=== PATIENT | female | born 1970 | race Caucasian/White ===

== ENCOUNTER 2018-09-13 20:19 | Emergency (ER) | payer OTHER, SELFPAY ==
[2018-09-13 20:19] VITALS: BP 136/81; PULSE 87; RESP 16; TEMP 36.7; O2SAT 99; BMI 39.4
--- NOTE | 2018-09-13 20:39 | ED.VISSUMM ---
- ER Visit Summary Date of Service: 09/13/18 Chief Complaint: Right eye injury History of Present Illness: The patient is a 47 F with a paper cut to her right eye 2 hours ago. No vision changes. She has no redness she feels well. She has minimal pain. Physical Examination: Otherwise normal exam, there is a very small linear abrasion over the lateral corneal region does not involve the pupil. Emergency Department Course and Treatment: We will use bacitracin. Patient will be discharged Discharge stable condition Impression: [Corneal abrasion] This note was generated with [employer] dictation software. It may contain incorrect words, spelling, and punctuation that were not noted in review of the chart prior to signing ED Disposition - Plan for ED Patient: Disposition: Home or Assisted Living Instructions: ED Eye Injury Corneal Abrasion Referrals: [facility] Doctor,Out of [Primary Care Provider] - As Needed
[2018-09-13] MEDS: Diphth,Pertuss(Acell),Tet Vac 0.5 ML Vial IM (20:48)
[2018-09-13 21:11] VITALS: BP 122/71; PULSE 71; RESP 17; O2SAT 99
== END 2018-09-13 21:12 | disposition home or self-care (01) ==
PROVIDERS: Emergency Provider Emergency Medicine; Family Provider Nurse Practitioner Family; PCP Nurse Practitioner Family
DX: S05.01XA Injury of conjunctiva and corneal abrasion without foreign body, right eye, initial encounter (principal); X58.XXXA Exposure to other specified factors, initial encounter; Y93.9 Activity, unspecified; Y92.9 Unspecified place or not applicable
CPT/HCPCS: 90471; 90715; 99282

== ENCOUNTER → 2019-04-08 12:36 | Outpatient (CLI) | payer OTHER, SELFPAY ==
--- NOTE | 2019-04-08 13:00 | MRI_ITS ---
STUDY: MRI BRAIN WITH AND WITHOUT CONTRAST REASON FOR EXAM: Female, 48 years old. Increase in H/A''s, pressure behind eyes, passing out TECHNIQUE: Standardized multiplanar fat and water weighted pulse sequences were obtained. Pt received 19ml Dotarem via IV was administered for the contrast portion of the examination. COMPARISON: None. FINDINGS: Normal size of the ventricles and extra-axial spaces for the patient''s age. Normal white matter tracts of the supratentorial brain. There is no evidence for recent intracranial ischemia or other cause of cytotoxic edema on diffusion weighted imaging (DWI). 1 cm hypointensity of the left hemisphere of the cerebellum is hypointense on all sequences with questionable blooming on the gradient echo images possibly consistent with some hemosiderin staining from old hemorrhage or calcification. Correlation with CT would be useful. Normal bilateral basal ganglia. Normal thalami. There is no extra-axial fluid accumulation. Normal flow voids within the major intracranial circulation suggesting patency by spin echo criteria. Normal venous enhancement. There is no enhancing intra-axial or extra-axial abnormality. Normal sella turcica, pituitary gland, infundibular stalk, optic chiasm and hypothalamus. Normal tectal plate and pineal gland. Normal midbrain, verena and medulla. Normal cerebellum. Normal basal cisterns. Normal bilateral temporal bones. Normal bilateral internal auditory canals. No demonstrated orbital abnormality, within the constraints of a routine brain study. Normal visualized paranasal sinuses. Normal calvarium and skull base. Normal visualized soft tissue structures. Normal visualized upper cervical spine. MRI/Brain W/WO Contrast IMPRESSION: Suspect 1 cm old hemorrhage or calcification of the left hemisphere of the cerebellum. Correlation with CT would be useful. Electronically Signed: Titus Baeza MD at 13:53 EST Tel , Service support ,
== END ==
PROVIDERS: Family Provider Nurse Practitioner Family; PCP Nurse Practitioner Family; Referring Provider Psychiatry & Neurology Neurology; Visit Provider Psychiatry & Neurology Neurology
DX: R55 Syncope and collapse (principal); R27.0 Ataxia, unspecified
CPT/HCPCS: 70553; A9575

== ENCOUNTER → 2019-05-14 14:35 | Outpatient (CLI) | payer OTHER, SELFPAY ==
--- NOTE | 2019-05-14 14:44 | RAD_ITS ---
STUDY: X-RAY - LUMBOSACRAL SPINE REASON FOR EXAM: Female, 48 years old. LUMBAR RADICULOPATHY -- PT STATES LEGS/KNEES GIVE OUT AND SHE FALLS TECHNIQUE: 7 view(s) of the lumbosacral spine were obtained. COMPARISON: None FINDINGS: Normal lumbar lordosis. There is no substantial scoliosis. There is normal alignment of the vertebrae. There is mild spondylosis with narrowing of disc spaces through the lower thoracic spine. Normal vertebral bodies and endplates. Normal disc space heights. Mild facet hypertrophy at L4-L5 and L5-S1. Normal bilateral sacral ala, sacroiliac joints, and visualized sacrum. Normal visualized soft tissue structures. RAD/L/S Spine w Bend Min 6 Vw IMPRESSION: Mild spondylosis/degenerative disease, more so through the lower thoracic spine. Otherwise normal x-ray examination of the lumbosacral spine. Electronically Signed: Oliva Alexander MD at 0:10 EST , Service support ,
== END ==
PROVIDERS: PCP Nurse Practitioner Family; Visit Provider Psychiatry & Neurology Neurology
DX: M54.16 Radiculopathy, lumbar region (principal)
CPT/HCPCS: 72114

== ENCOUNTER → 2019-06-01 13:03 | Outpatient (CLI) | payer OTHER, SELFPAY ==
--- NOTE | 2019-06-01 13:13 | CT_ITS ---
STUDY: CT BRAIN WITHOUT CONTRAST REASON FOR EXAM: Female, 48 years old. Severe headache, near syncope RADIATION DOSAGE (If Supplied By Facility): CTDIvol = ( 44.99 ) mGy, DLP = ( 745.49 ) mGycm TECHNIQUE: Transaxial CT imaging of the brain was performed without administration of intravenous contrast material. Individualized dose optimization techniques were used for this CT. COMPARISON: MRI from 04/08/2019 FINDINGS: Normal soft tissue structures. Normal calvarium. Normal size ventricles and extra-axial spaces for the patient''s age. Normal white matter tracts of the cerebral hemispheres. Normal basal ganglia and thalami. Normal brainstem. Normal cerebellum. There is no intracranial hemorrhage. There are no findings of an acute ischemic infarction. Normal visualized paranasal sinuses. CT/Brain/Head without Contrast IMPRESSION: Normal unenhanced CT scan of the brain. Electronically Signed: Lew Shepherd MD at 17:51 EST , Service support ,
== END ==
PROVIDERS: PCP Nurse Practitioner Family; Referring Provider Psychiatry & Neurology Neurology; Visit Provider Psychiatry & Neurology Neurology
DX: I61.4 Nontraumatic intracerebral hemorrhage in cerebellum (principal)
CPT/HCPCS: 70450

== ENCOUNTER 2020-08-28 21:24 | Emergency (ER) | payer OTHER, SELFPAY ==
[2020-08-28 21:25] VITALS: BP 105/83; PULSE 83; RESP 18; TEMP 36.4; O2SAT 100; BMI 30.1
[2020-08-28 21:27] VITALS: BP 105/83; PULSE 83; RESP 18; TEMP 36.4; O2SAT 100
--- NOTE | 2020-08-28 22:13 | EX.ED.DYSGE1 ---
HPI History of Present Illness Chief Complaint: Abscess Informant: patient Narrative Narrative: 49-year-old female presenting to the emergency department with rash to the posterior right leg. She states it started on 6 days ago. She states that she noticed that it was kind of firm and tender. She went and saw her primary care doctor who she states did not look at it but felt it was probably a Sorenson's cyst so she sent her to [facility]. She saw them today who she states was going to call in an antibiotic. She states that she never got an antibiotic called then. She reports that they eddie a ring around the redness of the site. It then opened up and started oozing clear to serosanguineous fluid. She notes there was some pus. She notes the redness is spread. She denies any fevers. [facility] Medical History Diabetes Fibromyalgia History of hypertension IBS (irritable bowel syndrome) Home Medications aspirin 81 mg PO DAILY 08/28/20 [History Last Taken Unknown] cephalexin 500 mg PO Q6 #40 capsule 08/28/20 [Rx Last Taken Unknown] cetirizine [Zyrtec] 10 mg PO DAILY 08/28/20 [History Last Taken Unknown] gabapentin 600 mg PO BID 08/28/20 [History Last Taken Unknown] gabapentin 600 mg PO BID 08/28/20 [History Last Taken Unknown] magnesium 400 mg PO DAILY 08/28/20 [History Last Taken Unknown] metformin 500 mg PO BID 08/28/20 [History Last Taken Unknown] omega 4-wxj-hod-fish oil [Fish Oil] 1,200 cap PO DAILY 08/28/20 [History Last Taken Unknown] sulfamethoxazole-trimethoprim 1 tab PO BID #20 tablet 08/28/20 [Rx Last Taken Unknown] thyroid (pork) [ASSOCIATE SOFTWARE DEVELOPMENT ENGINEER Thyroid] 60 mg PO DAILY 08/28/20 [History Last Taken Unknown] topiramate 100 mg PO BID 08/28/20 [History Last Taken Unknown] Allergy/AdvReac Type Severity Reaction Status Date / Time No Known Allergies Allergy Verified 08/28/20 21:24 Surgical History H/O: hysterectomy Hx of cholecystectomy Hx of tonsillectomy Social History (Updated 08/28/20 @ 22:[address] Jun Garzon, DO) Smoking Status: Current every day smoker substance use type: does not use ROS ROS ED Constitutional Constitutional ED: Denies chills or weight loss Eyes Eyes: Denies change in vision or diplopia ENT ENT ED: Denies ear pain, rhinorrhea or sore throat Cardiovascular Cardiovascular: Denies chest pain, orthopnea, palpitations or racing heartbeat Respiratory/Chest Respiratory/Chest: Denies cough, dyspnea or orthopnea Gastrointestinal Gastrointestinal: Denies abdominal pain, diarrhea, nausea or vomiting Genitourinary Genitourinary ED: Denies dysuria, hematuria or urinary frequency Musculoskeletal Musculoskeletal: Denies arthralgias or myalgias Integumentary Reports abscess and rash Neurologic Neurologic: Denies headache(s) or weakness Psychiatric Psychiatric: Denies anxiety, depression, suicidal ideation or suicidal thoughts Endocrine Endocrinology: Denies polydipsia, polyphagia or polyuria Allergic/Immunologic Allergic/Immunologic ED: Denies mouth swelling, tongue swelling or urticaria EXAM Physical Exam Const Vital Signs: 08/28/20 21:25 08/28/20 21:27 Temperature 97.6 F L 97.6 F L Temperature Source Temporal Temporal Pulse Rate 83 83 Respiratory Rate 18 18 Blood Pressure 105/83 H 105/83 H Blood Pressure Mean 90 90 Pulse Ox 100 100 Oxygen Delivery Method Room Air Room Air Positive well nourished and well developed General Appearance ED: well developed HEENT Reports normocephalic, head/scalp atraumatic and moist mucous membranes Eyes PERRL and EOMs intact bilaterally Neck no lymphadenopathy, supple and no JVD Resp normal respiratory effort and clear to auscultation bilaterally Cardio regular rate, regular rhythm and no murmurs GI normal to inspection, nondistended, normoactive bowel sounds and non-tender Palpation: soft Back/Spine no CVA tenderness and normal ROM Extremity normal to inspection General Extremety ED: Negative for edema General Extremity: Negative for edema Neuro oriented x3 and CN's II-XII intact bilaterally Sensorium / Orientation: alert Motor Exam: strength 5/5 throughout Psych mental status grossly normal Mood & Affect: Negative for depressed or tearful Skin no wounds Skin Narrative: Posterior right thigh demonstrates a 2 cm area of black eschar with a hole in the center. Serosanguineous fluid is drainage from it. There is about 15 cm of circular erythema around it. MDM MDM MDM Narrative Medical decision making narrative: Bedside ultrasound does not reveal an obvious fluid collection. As mentioned in the physical there is a hole in the center of the eschar and this is where fluid is draining from. Patient will be placed on Bactrim and Keflex. Wound culture sent. Patient was advised to return instructions. She was advised that she needs to follow-up with primary care doctor if this is improving to ensure resolution Discharge Plan Triage Chief Complaint: Abscess ED Provider: Jun Garzon Dx/Rx/DC Orders Clinical Impression: Cellulitis of left thigh Instructions: ED Cellulitis Prescriptions: New sulfamethoxazole-trimethoprim [sulfamethoxazole-trimethoprim] 1 TABLET tablet 1 tab PO BID Qty: 20 RF: 0 cephalexin [cephalexin] 500 MG capsule 500 mg PO Q6 Qty: 40 RF: 0 No Action magnesium 500 mg Tablet 400 mg PO DAILY RF: 0 gabapentin 600 mg Tablet 600 mg PO BID RF: 0 gabapentin 600 mg Tablet 600 mg PO BID RF: 0 aspirin 81 mg Tablet 81 mg PO DAILY RF: 0 topiramate 100 mg Tablet 100 mg PO BID RF: 0 metformin 500 mg Tablet,Er Basil.Retention 24 Hr 500 mg PO BID RF: 0 thyroid (pork) [ASSOCIATE SOFTWARE DEVELOPMENT ENGINEER Thyroid] 60 mg Tablet 60 mg PO DAILY RF: 0 omega 5-vpr-zqz-fish oil [Fish Oil] 1,200 (144-216) mg Capsule 1,200 cap PO DAILY RF: 0 Zyrtec 10 mg Capsule 10 mg PO DAILY RF: 0 Primary Care Provider: Emily Dickerson Referrals: Emily Dickerson, ASSOCIATE SOFTWARE DEVELOPMENT ENGINEER-C [Primary Care Provider] - 1 Week Disposition Disposition: Home, self care
[2020-08-28] MEDS: Smz/Tmp Ds Tablet 1 TABLET PO (22:34)
[2020-08-28] MEDS: Cephalexin 250 MG Capsule 500 MG PO (22:34)
== END 2020-08-28 22:36 | disposition home or self-care (01) ==
PROVIDERS: Emergency Provider Emergency Medicine; PCP Nurse Practitioner Family
DX: L03.115 Cellulitis of right lower limb (principal); I10 Essential (primary) hypertension; E11.9 Type 2 diabetes mellitus without complications; M79.7 Fibromyalgia; F17.200 Nicotine dependence, unspecified, uncomplicated; Z79.82 Long term (current) use of aspirin; Z79.84 Long term (current) use of oral hypoglycemic drugs; Z79.899 Other long term (current) drug therapy
CPT/HCPCS: 87070; 87077; 87186; 87205; 99283

== ENCOUNTER 2020-11-01 20:49 | Emergency (ER) | payer OTHER, SELFPAY ==
[2020-11-01 20:49] VITALS: BP 142/79; PULSE 90; RESP 16; TEMP 36.6; O2SAT 98; BMI 28.8
--- NOTE | 2020-11-01 21:45 | RAD_ITS ---
STUDY: X-RAY - RIGHT KNEE REASON FOR EXAM: Female, 49 years old. Injury TECHNIQUE: 4 view(s) of the knee. COMPARISON: None. FINDINGS: Normal visualized distal femur. Normal visualized proximal tibia and fibula. Normal proximal tibiofibular articulation. Normal medial femorotibial compartment. Normal lateral femorotibial compartment. Normal patellofemoral articulation. Possible medial subcutaneous soft tissue edema. RAD/Knee 4 or More Views IMPRESSION: No acute bony injury of the knee. Electronically Signed: Raymon Oshea DO at 22:45 EDT Tel [phone], Service support ,
--- NOTE | 2020-11-01 22:21 | EDS_ITS ---
HPI History of Present Illness Chief Complaint: Lower Extremity Injury Informant: patient Onset/Context/Timing Onset: Today Current Severity: Mild Maximum Severity: Moderate Narrative Narrative: Patient present secondary to right knee pain. Patient states that she injured her right knee about 20 years ago after a fall. She never required surgery. Today she was kneeling down on her knees after standing up and had severe pain in her right knee. She tried to walk it off but this caused more pain. No paresthesias. PFSH PFS Medical History Diabetes Fibromyalgia History of hypertension IBS (irritable bowel syndrome) Home Medications aspirin 81 mg PO DAILY 08/28/20 [History Last Taken Unknown] cephalexin 500 mg PO Q6 #40 capsule 08/28/20 [Rx Last Taken Unknown] cetirizine [Zyrtec] 10 mg PO DAILY 08/28/20 [History Last Taken Unknown] gabapentin 600 mg PO BID 08/28/20 [History Last Taken Unknown] gabapentin 600 mg PO BID 08/28/20 [History Last Taken Unknown] magnesium 400 mg PO DAILY 08/28/20 [History Last Taken Unknown] metformin 500 mg PO BID 08/28/20 [History Last Taken Unknown] omega 6-msx-zva-fish oil [Fish Oil] 1,200 cap PO DAILY 08/28/20 [History Last Taken Unknown] sulfamethoxazole-trimethoprim 1 tab PO BID #20 tablet 08/28/20 [Rx Last Taken Unknown] thyroid (pork) [CLINICAL RESOURCE MANAGER Thyroid] 60 mg PO DAILY 08/28/20 [History Last Taken Unknown] topiramate 100 mg PO BID 08/28/20 [History Last Taken Unknown] naproxen [Naprosyn] 500 mg PO BID PRN #20 tab 11/01/20 [Rx Last Taken Unknown] Allergy/AdvReac Type Severity Reaction Status Date / Time No Known Allergies Allergy Verified 11/01/20 20:49 Surgical History H/O: hysterectomy Hx of cholecystectomy Hx of tonsillectomy Social History Smoking Status: Current every day smoker tobacco type: cigarettes substance use type: does not use ROS ROS ED Constitutional Constitutional ED: Denies chills or fever(s) Eyes Eyes: Denies change in vision ENT ENT ED: Denies sore throat Cardiovascular Cardiovascular: Denies chest pain Respiratory/Chest Respiratory/Chest: Denies cough or dyspnea Gastrointestinal Gastrointestinal: Denies abdominal pain, diarrhea, nausea or vomiting Genitourinary Genitourinary ED: Denies dysuria Musculoskeletal Musculoskeletal: Reports arthralgias; Denies back pain Integumentary Denies rash Neurologic Neurologic: Denies headache(s) or weakness Psychiatric Psychiatric: Denies anxiety or depression Endocrine Endocrinology: Denies polydipsia or polyuria Allergic/Immunologic Allergic/Immunologic ED: Denies urticaria EXAM Physical Exam Const Vital Signs: 11/01/20 20:49 Temperature 97.8 F Temperature Source Temporal Pulse Rate 90 Respiratory Rate 16 Blood Pressure 142/79 H Blood Pressure Mean 100 Pulse Ox 98 Oxygen Delivery Method Room Air Positive well nourished and well developed General Appearance ED: well developed HEENT Reports normocephalic and head/scalp atraumatic Eyes PERRL and EOMs intact bilaterally Neck supple Chest Wall inspection of chest normal and palpation of chest normal Resp normal respiratory effort and clear to auscultation bilaterally Cardio regular rate and regular rhythm GI normal to inspection, nondistended, normoactive bowel sounds Palpation: soft Extremity normal to inspection Extremity Narrative: Tenderness outpatient along the infrapatellar tendon insertion site onto the tibia. No tenderness along the medial or lateral joint line. Patella is stable and ligaments are tight on testing. No significant edema. Neuro oriented x3 and no sensory deficits noted Sensorium / Orientation: alert Motor Exam: strength 5/5 throughout Psych mental status grossly normal Skin no rashes or lesions noted MDM MDM MDM Narrative Medical decision making narrative: Right knee x-rays are obtained. Patient declined anything for pain while here. Radiography Diagnostic Testing: Radiology Impression Knee X-Ray 11/01/20 21:45 IMPRESSION: No acute bony injury of the knee. Electronically Signed: Raymon Oshea DO at 22:45 EDT Tel [phone], Service support , Treatment and Re-Evaluation Comments:: Right knee x-ray per my interpretation reveals no acute bony findings. Test results discussed with the patient. Mk wrap is applied and patient will be given a prescription for naproxen. Patient's family has seen Dr. Sarmiento and Ramsey in the past and will be referred to him for follow-up as needed. Discharge Plan Triage Chief Complaint: Lower Extremity Injury ED Provider: Brielle Griffith Dx/Rx/DC Orders Clinical Impression: Right knee sprain Instructions: ED Knee Sprain Prescriptions: New naproxen [Naprosyn] 500 mg tablet 500 mg PO BID PRN (Reason: pain) Qty: 20 RF: 0 No Action magnesium 500 mg Tablet 400 mg PO DAILY RF: 0 gabapentin 600 mg Tablet 600 mg PO BID RF: 0 gabapentin 600 mg Tablet 600 mg PO BID RF: 0 aspirin 81 mg Tablet 81 mg PO DAILY RF: 0 topiramate 100 mg Tablet 100 mg PO BID RF: 0 metformin 500 mg Tablet,Er Basil.Retention 24 Hr 500 mg PO BID RF: 0 thyroid (pork) [CLINICAL RESOURCE MANAGER Thyroid] 60 mg Tablet 60 mg PO DAILY RF: 0 omega 6-soo-vcl-fish oil [Fish Oil] 1,200 (144-216) mg Capsule 1,200 cap PO DAILY RF: 0 Zyrtec 10 mg Capsule 10 mg PO DAILY RF: 0 sulfamethoxazole-trimethoprim [sulfamethoxazole-trimethoprim] 1 TABLET tablet 1 tab PO BID Qty: 20 RF: 0 cephalexin [cephalexin] 500 MG capsule 500 mg PO Q6 Qty: 40 RF: 0 Primary Care Provider: Care Physician,No Primary Referrals: Bautista Adames DO [STAFF PHYSICIAN] - As Needed Care Physician,No Primary [Primary Care Provider] - Disposition Disposition: Home, Self Care Discharge Date/Time: 11/01/20 22:29
== END 2020-11-01 22:29 | disposition home or self-care (01) ==
PROVIDERS: Emergency Provider Emergency Medicine
DX: S83.91XA Sprain of unspecified site of right knee, initial encounter (principal); X58.XXXA Exposure to other specified factors, initial encounter; Y93.89 Activity, other specified; Y92.9 Unspecified place or not applicable; Y99.9 Unspecified external cause status; I10 Essential (primary) hypertension; E11.9 Type 2 diabetes mellitus without complications; K58.9 Irritable bowel syndrome, unspecified; M79.7 Fibromyalgia; F17.210 Nicotine dependence, cigarettes, uncomplicated; Z79.82 Long term (current) use of aspirin; Z79.84 Long term (current) use of oral hypoglycemic drugs; Z79.899 Other long term (current) drug therapy
CPT/HCPCS: 73564; 99282

== ENCOUNTER 2021-02-24 15:12 | Emergency (ER) | payer OTHER, SELFPAY ==
[2021-02-24 15:13] VITALS: BP 150/89; PULSE 85; RESP 14; TEMP 37; O2SAT 100; BMI 29.7
--- NOTE | 2021-02-24 15:21 | RAD_ITS ---
INDICATION: foot pain EXAMINATION/TECHNIQUE: X-RAY - LEFT XR Foot Min 3 Views 3 VIEWS COMPARISON: None. FINDINGS: SOFT TISSUES: No soft tissue swelling or gas. No radiopaque foreign body. BONES/JOINTS: No acute fracture or subluxation.. Normal alignment. Preservation of the joint space.. No sclerotic or destructive changes observed. Incidental note of a small to moderate sized plantar spur. RAD/Foot min 3 Views IMPRESSION: 1. No evidence of fractures, malalignment or focal bony or joint space abnormality. 2. Incidental note of plantar spur. Electronically Signed: Titus Ontiveros MD at 15:59 EST Tel , Service support ,
--- NOTE | 2021-02-24 15:26 | ED.VIS.LOWEX ---
HPI History of Present Illness Chief Complaint: Lower Extremity Injury Narrative Narrative: 50-year-old female presenting with left foot pain. She states that on Thursday she inadvertently kicked her dog in the jaw and sustained a small laceration between the fourth and fifth toes on the left foot patient states that since that time she is had pain in the left foot that she states is difficult to ambulate. She does now have redness over the dorsal aspect of the foot adjacent to the fifth toe proximally. Patient does not have any systemic signs or symptoms. Patient states there is no drainage from the wound. Patient states that her dog was not missing any teeth. She has not yet been on any antibiotics. Last tetanus imitation unknown [facility] Medical History Diabetes Fibromyalgia History of hypertension IBS (irritable bowel syndrome) Home Medications aspirin 81 mg PO DAILY 08/28/20 [History Last Taken Unknown] cetirizine [Zyrtec] 10 mg PO DAILY 08/28/20 [History Last Taken Unknown] gabapentin 600 mg PO BID 08/28/20 [History Last Taken Unknown] magnesium 400 mg PO DAILY 08/28/20 [History Last Taken Unknown] metformin 500 mg PO DAILY 08/28/20 [History Last Taken Unknown] omega 4-xln-mne-fish oil [Fish Oil] 1,200 cap PO DAILY 08/28/20 [History Last Taken Unknown] thyroid (pork) [CHIEF LIBRARIAN EXTENSION DEPARTMENT Thyroid] 60 mg PO DAILY 08/28/20 [History Last Taken Unknown] topiramate 100 mg PO BID 08/28/20 [History Last Taken Unknown] amoxicillin-pot clavulanate [Augmentin] 1 tab PO BID #20 tab 02/24/21 [Rx Last Taken Unknown] atorvastatin 40 mg QHS 02/24/21 [History Last Taken Unknown] ergocalciferol (vitamin D2) 50,000 unit PO TU 02/24/21 [History Last Taken Unknown] progesterone micronized 200 mg PO DAILY 02/24/21 [History Last Taken Unknown] venlafaxine 150 mg PO DAILY 02/24/21 [History Last Taken Unknown] Allergy/AdvReac Type Severity Reaction Status Date / Time No Known Allergies Allergy Verified 02/24/21 15:14 Surgical History H/O: hysterectomy Hx of cholecystectomy Hx of tonsillectomy Social History Smoking Status: Current every day smoker tobacco type: cigarettes substance use type: does not use ROS ROS ED Constitutional Constitutional ED: Denies chills or fever(s) Eyes Eyes: Denies blurry vision, diplopia or other ENT ENT ED: Denies rhinorrhea or sore throat Cardiovascular Cardiovascular: Denies chest pain or palpitations Respiratory/Chest Respiratory/Chest: Denies cough or dyspnea Gastrointestinal Gastrointestinal: Denies abdominal pain or nausea Genitourinary Genitourinary ED: Denies dysuria or hematuria Integumentary Reports Abrasions and rash Neurologic Neurologic: Denies headache(s) or paresthesias EXAM Physical Exam Const Vital Signs: 02/24/21 15:13 02/24/21 16:41 Temperature 98.6 F Temperature Source Temporal Pulse Rate 85 86 Respiratory Rate 14 14 Blood Pressure 150/89 H 136/75 H Blood Pressure Mean 109 Pulse Ox 100 99 Oxygen Delivery Method Room Air Positive well nourished General Appearance ED: NAD HEENT normocephalic and atraumatic Resp normal respiratory effort and clear to auscultation bilaterally Cardio regular rate and regular rhythm Extremity Extremity Narrative: Tenderness palpation over the left foot proximal to the fourth and fifth toes. There is a small area of erythema approximately 2 cm in circular in this area. There is no crepitance palpated. There is a small abrasion between the fourth and fifth toes which is not bleeding. Neuro oriented x3 Sensorium / Orientation: alert MDM MDM MDM Narrative Medical decision making narrative: X-ray of the left foot on my interpretation shows no acute fracture or subluxation. Patient was given Closter, Augmentin, and her tetanus was updated. She is a small area of cellulitis on the left foot which was cleaned and dressed. Patient is counseled to keep her foot elevated when she can. She is also counseled to soak her foot in soapy water a couple of times today. She is to monitor for worsening of her infection and counseled to return if the antibiotics are not working. Patient is discharged home in stable condition. Impression: 1. Dog bite 2. Cellulitis 3. Left foot contusion Radiography Diagnostic Testing: Clinical Impression(s) from Imaging Studies Foot X-Ray 02/24/21 15:21 IMPRESSION: 1. No evidence of fractures, malalignment or focal bony or joint space abnormality. 2. Incidental note of plantar spur. Electronically Signed: Titus Ontiveros MD at 15:59 EST Tel , Service support , Discharge Plan Triage Chief Complaint: Lower Extremity Injury ED Provider: Nas Elizondo Dx/Rx/DC Orders Instructions: ED Contusion, Lower Extremity, ED Dog Bite Prescriptions: New amoxicillin-pot clavulanate [Augmentin] 875-125 mg tablet 1 tab PO BID Qty: 20 RF: 0 No Action magnesium 500 mg Tablet 400 mg PO DAILY RF: 0 gabapentin 600 mg Tablet 600 mg PO BID RF: 0 aspirin 81 mg Tablet 81 mg PO DAILY RF: 0 topiramate 100 mg Tablet 100 mg PO BID RF: 0 metformin 500 mg Tablet,Er Basil.Retention 24 Hr 500 mg PO DAILY RF: 0 thyroid (pork) [CHIEF LIBRARIAN EXTENSION DEPARTMENT Thyroid] 60 mg Tablet 60 mg PO DAILY RF: 0 omega 3-fad-ata-fish oil [Fish Oil] 1,200 (144-216) mg Capsule 1,200 cap PO DAILY RF: 0 Zyrtec 10 mg Capsule 10 mg PO DAILY RF: 0 atorvastatin 40 mg tablet 40 mg QHS RF: 0 venlafaxine 150 mg capsule,extended release 24hr 150 mg PO DAILY RF: 0 progesterone micronized 200 mg capsule 200 mg PO DAILY RF: 0 ergocalciferol (vitamin D2) 1,250 mcg (50,000 unit) capsule 50,000 unit PO TU RF: 0 Primary Care Provider: Care Physician,No Primary Referrals: Care Physician,No Primary [Primary Care Provider] - Disposition Disposition: Home, Self Care Discharge Date/Time: 02/24/21 16:42
[2021-02-24] MEDS: HYDROcodone Bitartrate/Apap 5/325 Tablet PO (15:48)
[2021-02-24] MEDS: Diphth,Pertuss(Acell),Tet Vac 0.5 ML Vial IM (15:49)
[2021-02-24] MEDS: Amox/Clavulanate 875 MG Tablet PO (15:49)
[2021-02-24 16:41] VITALS: BP 136/75; PULSE 86; RESP 14; O2SAT 99
== END 2021-02-24 16:42 | disposition home or self-care (01) ==
PROVIDERS: Emergency Provider Student in an Organized Health Care Education/Training Program
DX: S90.872A Other superficial bite of left foot, initial encounter (principal); S90.32XA Contusion of left foot, initial encounter; L03.116 Cellulitis of left lower limb; W54.0XXA Bitten by dog, initial encounter; Y93.89 Activity, other specified; Y92.9 Unspecified place or not applicable; Y99.8 Other external cause status; I10 Essential (primary) hypertension; E11.9 Type 2 diabetes mellitus without complications; M79.7 Fibromyalgia; F17.210 Nicotine dependence, cigarettes, uncomplicated; Z79.82 Long term (current) use of aspirin; Z79.84 Long term (current) use of oral hypoglycemic drugs; Z79.899 Other long term (current) drug therapy
CPT/HCPCS: 73630; 90471; 90715; 99284

== ENCOUNTER 2021-03-25 14:44 | Observation (INO) | payer OTHER, SELFPAY ==
[2021-03-25] VITALS (10 sets, daily range): BP systolic 111–141; BP diastolic 62–92; PULSE 73–90; RESP 15–24; TEMP 35.3–36.8; O2SAT 97–100; BMI 30.7; BMI 29.3
--- NOTE | 2021-03-25 14:45 | EKG12_ITS ---
Test Reason : NUMBNESS Blood Pressure : / mmHG Vent. Rate : 077 BPM Atrial Rate : 077 BPM P-R Int : 148 ms QRS Dur : 122 ms QT Int : 384 ms P-R-T Axes : -04 036 006 degrees QTc Int : 434 ms Normal sinus rhythm Right bundle branch block Abnormal ECG Confirmed by NENO LUCAS, JOY ([id number]), editor farm journal VANDANA ALONSO ([id number]) on 03/27/2021 11:43:16 AM Referred By: UGG Confirmed By:JOY LAZCANO MD
--- NOTE | 2021-03-25 14:45 | RAD_ITS ---
STUDY: X-RAY CHEST REASON FOR EXAM: Female, 50 years old. Stroke TECHNIQUE: Single AP portable view of the chest. COMPARISON: None. FINDINGS: The lungs are clear and expanded. There is no demonstrated pleural abnormality. Normal size heart. Normal mediastinum and roxana. Normal visualized pulmonary arteries. Normal visualized aortic arch and descending thoracic aorta. Normal visualized thoracic spine. Normal visualized ribs, clavicles, and shoulders. The patient is status post cholecystectomy. RAD/Chest 1 View (Portable) IMPRESSION: Normal x-ray examination of the chest. Electronically Signed: Calvin Arias MD at 15:18 EST , Service support ,
--- NOTE | 2021-03-25 14:51 | CT_ITS ---
STUDY: CT BRAIN WITHOUT CONTRAST REASON FOR EXAM: Female, 50 years old. NEURO deficit. RADIATION DOSAGE (If Supplied By Facility): CTDIvol = ( 44.99 ) mGy, DLP = ( 762.36 ) mGycm TECHNIQUE: Transaxial CT imaging of the brain was performed without administration of intravenous contrast material. Individualized dose optimization techniques were used for this CT. COMPARISON: Comparison is made with prior study to 06/01/2019. FINDINGS: Normal soft tissue structures. Normal calvarium. Normal size ventricles and extra-axial spaces for the patient''s age. Normal white matter tracts of the cerebral hemispheres. Normal basal ganglia and thalami. Normal brainstem. Normal cerebellum. There is no intracranial hemorrhage. There are no findings of an acute ischemic infarction. Normal visualized paranasal sinuses. CT/Brain/Head without Contrast IMPRESSION: Normal unenhanced CT scan of the brain. Electronically Signed: Calvin Arias MD at 15:18 EST , Service support ,
[2021-03-25 16:26] LABS: Absolute Lymphocyte Count 3.37 X10^3/uL (0.83-4.51); Absolute Neutrophil Count 7.2 X10^3/uL (2.0-7.7); Basophil# 0.05 X10^3/uL; Basophil% 0.4 % (0-1); Eosinophil# 0.09 X10^3/uL; Eosinophils% 0.8 % (0-5); Hematocrit 43.4 % (37-47); Hemoglobin 14.7 g/dL (12.0-15.0); Lymphocyte # 3.37 X10^3/ul (0.83-4.51); Mean Corp Hgb Conc 33.9 g/dL (32-36); Mean Corpuscular Hgb 30.9 pg (27.0-32.0); Mean Corpuscular Volume 91.2 fL (81-99); Mean Platelet Vol. 9.8 fl (6.2-12.0); Monocyte# 0.51 X10^3/uL; Monocyte% 4.5 % (0-10); NRBC Flagged by Analyzer 0 % (0-5); Neutrophil # 7.18 X10^3/uL (2.7-7.7); Platelet Count 208 K/mm3 (150-450); RBC Distribution Width CV 11.7 % (11.6-14.6); RBC Distribution Width SD 39.3 fl (35.1-43.9); Red Blood Count 4.76 M/mm3 (4.2-5.4); White Blood Count 11.2 K/mm3 (4.4-11.0)
[2021-03-25 16:45] LABS: Anion Gap 3 (5-15); BUN 16 mg/dL (7-18); BUN/Creat Ratio 23.6 RATIO (10-20); Calcium,Total 9.9 mg/dL (8.5-10.1); Chloride 109 mmol/L (98-107); Creatinine, Serum 0.68 mg/dL (0.55-1.02); EST Glomerular Filtration Rate 98 mL/min (>60); Est Glom Filt Rate - Afr Amer 119 mL/min (>60); Estimated Creatinine Clearance 86.42 ml/min; Glucose 96 mg/dL (74-106); Sodium Level 141 mmol/L (136-145)
[2021-03-25 16:51] LABS: Partial Thromboplast Time 26.3 Seconds (24.1-36.2)
--- NOTE | 2021-03-25 17:02 | EDS_ITS ---
HPI History of Present Illness Chief Complaint: Numb/Ting Informant: patient Onset/Context/Timing Onset: Today (Patient noted some numbness in her mouth not working right this morning. ) Context: Gradual Onset Timing: Continuous Quality and Location: Positive for Left Facial Droop, Left Face Parasthesia, Left Arm Parasthesia and Left Arm Weakness Onset: Facial symptoms started this morning prior to work left hand Current Severity: Mild Maximum Severity: Moderate Worsened by: Nothing Relieved by: Nothing Associated Symptoms Associated Symptoms: Negative for Headache, Nausea and Vomiting Narrative Narrative: Patient is a 50-year-old woman history of smoking 1 pack/day as well as hypercholesterolemia, type 2 diabetes hypothyroidism on progesterone who presents because of unusual sensation and difficulty using the left side of her mouth started prior to work. While at work she attempted to text her boss and was having difficulty. She states she had difficulty holding the phone as well as dexterity to text him. The facial symptoms persist the hand symptoms lasted 10 to 15 minutes. She denies history of TIA or CVA. There is no history of head trauma. She denies headache. She denies visual, ocular auditory symptoms. Denies trouble with speech or swallowing. She denies ear pain or ear lesion. She denies facial pain. She denies neck pain or neck stiffness. She denies cardiac respiratory symptoms. She denies GI symptoms. She denies symptoms. Prior similar symptoms: No Recent Illness/Hospitalization: No [facility] Medical History Diabetes Fibromyalgia History of hypertension IBS (irritable bowel syndrome) Home Medications aspirin 81 mg PO DAILY 08/28/20 [History Last Taken Unknown] cetirizine [Zyrtec] 10 mg PO DAILY 08/28/20 [History Last Taken Unknown] gabapentin 600 mg PO BID 08/28/20 [History Last Taken Unknown] magnesium 400 mg PO DAILY 08/28/20 [History Last Taken Unknown] metformin 500 mg PO DAILY 08/28/20 [History Last Taken Unknown] omega [id number]-fish oil [Fish Oil] 1,200 cap PO DAILY 08/28/20 [History Last Taken Unknown] thyroid (pork) [BARK SCALER Thyroid] 60 mg PO DAILY 08/28/20 [History Last Taken Unknown] topiramate 100 mg PO BID 08/28/20 [History Last Taken Unknown] amoxicillin-pot clavulanate [Augmentin] 1 tab PO BID #20 tab 02/24/21 [Rx Last Taken Unknown] atorvastatin 40 mg QHS 02/24/21 [History Last Taken Unknown] ergocalciferol (vitamin D2) 50,000 unit PO TU 02/24/21 [History Last Taken Unknown] progesterone micronized 200 mg PO DAILY 02/24/21 [History Last Taken Unknown] venlafaxine 150 mg PO DAILY 02/24/21 [History Last Taken Unknown] Allergy/AdvReac Type Severity Reaction Status Date / Time No Known Allergies Allergy Verified 02/24/21 15:14 Surgical History H/O: hysterectomy Hx of cholecystectomy Hx of tonsillectomy Social History Smoking Status: Current every day smoker tobacco type: cigarettes substance use type: does not use ROS ROS ED Constitutional Constitutional ED: Denies chills, fever(s), subjective or sweats Eyes Eyes: Denies blurry vision, change in vision or diplopia ENT ENT ED: Denies ear pain, rhinorrhea or sore throat Cardiovascular Cardiovascular: Denies chest pain, palpitations, paroxysmal nocturnal dyspnea or racing heartbeat Respiratory/Chest Respiratory/Chest: Denies cough, dyspnea, dyspnea on exertion, paroxysmal nocturnal dyspnea or sputum Gastrointestinal Gastrointestinal: Denies abdominal pain, constipation, diarrhea, nausea or vomiting Genitourinary Genitourinary ED: Denies dysuria, hematuria or urinary frequency Musculoskeletal Musculoskeletal: Denies arthralgias, back pain, myalgias or neck pain Integumentary Denies abscess, Abrasions or rash Neurologic Neurologic: Reports paresthesias and weakness; Denies headache(s) Psychiatric Psychiatric: Denies anxiety, depression or suicidal thoughts Endocrine Endocrinology: Denies polydipsia, polyphagia or polyuria Hematologic/Lymphatic Hematologic/Lymphatic: Denies easy bleeding or easy bruising EXAM Physical Exam Const Vital Signs: 03/25/21 14:46 03/25/21 16:45 03/25/21 16:52 Temperature 95.5 F L Temperature Source Temporal Pulse Rate 90 82 Respiratory Rate 16 15 Blood Pressure 141/84 H 132/92 H Blood Pressure Mean 103 105 Pulse Ox 99 98 100 Oxygen Delivery Method Room Air Room Air Room Air 03/25/21 16:54 Temperature Temperature Source Pulse Rate Respiratory Rate Blood Pressure 132/92 H Blood Pressure Mean 105 Pulse Ox Oxygen Delivery Method Positive well nourished, well developed and obese General Appearance ED: well developed and NAD Nutritional Appearance: obese HEENT Reports TM's clear and moist mucous membranes atraumatic; Negative for trauma Nose: other Other Details: Head is normocephalic. There is a slight facial droop noted on the left. There is sparing of the forehead. There is no lesions in the auditory canal to suggest Tressa Canela syndrome. Tympanic Membrane ED: Yes TM's clear Eyes PERRL and EOMs intact bilaterally General Eye ED: Negative for pale conjunctiva or scleral icterus Neck no lymphadenopathy, supple and no JVD Chest Wall inspection of chest normal and palpation of chest normal Resp normal respiratory effort and clear to auscultation bilaterally Cardio no murmurs Rate: regular rate Rhythm: regular rhythm Heart Sounds: S1 normal and S2 normal GI normal to inspection, nondistended, normoactive bowel sounds, soft to palpation, non-tender and non-distended Back/Spine no CVA tenderness Cervical Spine: Negative for cervical spine tenderness Thoracic Spine / Upper Back: Negative for thoracic spinal tenderness Lumbar Spine / Lower Back: Negative for lumbar spinal tenderness Extremity normal to inspection General Extremety ED: Yes tenderness Neuro oriented x3, No CN's II-XII intact bilaterally and no sensory deficits noted Pankaj Coma Scale: document GCS findings Spontaneous Obeys Commands Oriented 15 Sensorium / Orientation: alert Speech: speech normal Motor Exam: strength 5/5 throughout Psych mental status grossly normal Skin no wounds General Skin Exam: Negative for jaundice Lesions: no lesions Rashes: no rashes STROKE Vital Signs/Narrative: Vital Signs Temp Pulse Resp BP Pulse Ox 03/25/21 16:54 132/92 H 03/25/21 16:52 82 15 132/92 H 100 03/25/21 16:45 98 03/25/21 14:46 95.5 F L 90 16 141/84 H 99 NIHSS Initial: 1a Level of Consciousness: 0 1b LOC Questions (Score 2 if aphasic/stupor): 0 1c LOC Commands (Only score 1st attempt): 0 2 Best Gaze (If aphasic, use reflexive mvmts.): 0 3 Visual: 0 4 Facial Palsy: 1 5 Motor Arm Right (UN = amputation/fusion): 0 5 Motor Arm Left: 0 6 Motor Leg Right: 0 6 Motor Leg Left: 0 7 Limb ataxia (Only + if out of proportion): 0 8 Sensory (Aphasia/stupor=0 or 1, coma=2): 0 9 Best Language: 0 10 Dysarthria (mute, coma=2, intubated=UN): 0 11 Extinction and Inattention (only scored if +): 0 Total Score: 1 MDM MDM MDM Narrative Medical decision making narrative: She presents with symptoms concerning for stroke. Patient NIH is 1. Appropriate orders per nursing staff was ordered for stroke work-up. Spoke with hospitalist for admission for further work-up. Lab Data Labs: Laboratory Results - last 24 hr 03/25/21 03/25/21 03/25/21 16:05 16:05 16:05 WBC 11.2 H RBC 4.76 Hgb 14.7 Hct 43.4 MCV 91.2 MCH 30.9 MCHC 33.9 RDW Std Deviation 39.3 RDW Coeff of Paolo 11.7 Plt Count 208 MPV 9.8 Immature Gran % (Auto) 0.300 Neut % (Auto) 64.0 Lymph % (Auto) 30.0 [place] % (Auto) 4.5 Eos % (Auto) 0.8 Baso % (Auto) 0.4 Absolute Neuts (auto) 7.2 Absolute Lymphs (auto) 3.37 Nucleated RBC % 0 PT 13.0 INR 1.0 APTT 26.3 Sodium 141 Potassium 4.0 Chloride 109 H Carbon Dioxide 29.0 Anion Gap 3 L BUN 16 Creatinine 0.68 Estim Creat Clear Calc 86.42 Est GFR (MDRD) Af Amer 119 Est GFR (MDRD) Non-Af 98 BUN/Creatinine Ratio 23.6 H Glucose 96 Calcium 9.9 Radiography Diagnostic Testing: Clinical Impression(s) from Imaging Studies Chest X-Ray 03/25/21 14:45 IMPRESSION: Normal x-ray examination of the chest. Electronically Signed: Calvin Arias MD at 15:18 EST , Service support , Brain CT 03/25/21 14:51 IMPRESSION: Normal unenhanced CT scan of the brain. Electronically Signed: Calvin Arias MD at 15:18 EST , Service support , Rhythm Strip Rhythm Strip: Sinus Rhythm Rate: 91 Ectopy: None Stroke Documentation Questions Stroke Team Activated: No Reviewed Inclusion/Exclusion criteria: No Was Patient considered for Endovascular Intervention?: No IV Alteplase (t-PA) Administered: No No contraindications for IV Alteplase (t-PA) administration.: No (Patient outside the window) Alteplase (t-PA) risks, benefits, alternative discussed: No Discharge Plan Dx/Rx/DC Orders Clinical Impression: Acute CVA (cerebrovascular accident) Disposition Disposition: Acute Care Hospital [facility]
--- NOTE | 2021-03-25 17:35 | HP.PCM.HOS_ITS ---
Documented by User: Jackson CANALES 03/25/21 17:58 HPI - General General Date of Admission: 03/25/21 Date of Service: 03/25/21 Chief Complaint: Left sided facial droop w/ slurred speech. HPI Narrative NARINDER VALLECILLO is a 50-year-old female who presents to the ED at [facility] on 03/25/2021 with a chief complaint of slurred speech and dysarthria. Patient reports that this morning while she was driving to work she noticed in the mirror that the left side of her face was drooping. Patient proceeded to drive to work where her friends also made comment of her left-sided facial droop and noticed that she was also slurring her speech. Patient was directed to the ED by her PCP. Patient only reports mild slurred speech and left-sided facial droop, but denies headache, vision changes or numbness/tingling. Patient denies any prior history of stroke, but does have a seizure history. Patient reports that this episode definitely feels different than her previous seizures. Patient does have diabetes which she keeps well controlled on diet and Metformin. Patient self reports that her last hemoglobin A1c was 5.2. Vital signs in the ED are temperature of 95.5, HR 90, BP of 141/84, RR of 16 and patient is currently satting 99% on room air. Brain CT does not demonstrate any acute findings. Chest x-ray is unremarkable. CBC shows WBCs at 11.2, hemoglobin of 14.7 and platelets are at 208. BMP shows sodium of 141, potassium of 4.0, creatinine at 0.68 and glucose 96. High-sens itivity troponins are elevated. Patient was given fluids in the ED. [facility] Medical History Anxiety Depression Diabetes Endometriosis determined by laparoscopy Fibromyalgia History of hypertension Hypertension Hypothyroidism IBS (irritable bowel syndrome) Migraines Seizures Seizures Smoker Home Medications cetirizine [Zyrtec] 10 mg PO DAILY 08/28/20 [History Last Taken 03/25/21] gabapentin 600 mg PO BID 08/28/20 [History Last Taken 03/25/21] metformin 500 mg PO DAILY 08/28/20 [History Last Taken 03/25/21] omega 1-zpf-qgr-fish oil [Fish Oil] 1,200 cap PO DAILY 08/28/20 [History Last Taken 03/25/21] thyroid (pork) [[employer] Thyroid] 60 mg PO DAILY 08/28/20 [History Last Taken 03/25/21] topiramate 150 mg PO BID 08/28/20 [History Last Taken 03/25/21] atorvastatin 40 mg QHS 02/24/21 [History Last Taken 03/24/21] ergocalciferol (vitamin D2) 50,000 unit PO TU 02/24/21 [History Last Taken 03/19/21] progesterone micronized 200 mg PO DAILY 02/24/21 [History Last Taken 03/24/21] venlafaxine 150 mg PO DAILY 02/24/21 [History Last Taken 03/25/21] Dim 200 mg PO/SL DAILY 03/25/21 [History Last Taken 03/25/21] aspirin 81 mg PO DAILY 03/25/21 [History Last Taken 03/25/21] magnesium oxide 400 mg PO DAILY 03/25/21 [History Last Taken 03/25/21] potassium chloride [Klor-Con M20] 20 meq PO QHS 03/25/21 [History Last Taken 03/24/21] Allergy/AdvReac Type Severity Reaction Status Date / Time No Known Allergies Allergy Verified 02/24/21 15:14 Family History Father CVA (cerebral vascular accident) Cancer Skin Mother Endometriosis Surgical History H/O: hysterectomy Hx of appendectomy Hx of cholecystectomy Hx of laparoscopy Hx of tonsillectomy Social History Smoking Status: Current every day smoker tobacco type: cigarettes Smoking packs per day: 1 Smoking cigarettes per day: 20.0 Years smoked: 35 Smoking pack-years: 35.00 alcohol intake: current alcohol intake frequency: holidays/special occasions only substance use type: does not use ROS Constitutional Constitutional: Denies anorexia, change in weight, chills, fatigue, fever(s), malaise, night sweats, weakness or other Eyes Eyes: Denies blurry vision, change in eye color, change in vision, discharge from eye(s), double vision, erythema, eye pain, loss of vision or other ENT HEENT: Denies abnormal hearing, dysphagia, ear pain, epistaxis, headache(s), hearing loss, nasal congestion, nasal discharge, post nasal drip, sinus pressure, sore throat or other Cardiovascular Cardiovascular: Denies chest pain, claudication, dyspnea on exertion, edema, lightheadedness, orthopnea, palpitations, paroxysmal nocturnal dyspnea, rapid heart rate, syncope or other Respiratory/Chest Respiratory/Chest: Denies cough, dyspnea, excessive phlegm production, hemo ptysis, productive cough, shortness of breath at rest, shortness of breath with exertion, wheezing or other Gastrointestinal Gastrointestinal: Denies abdominal pain, coffee ground emesis, constipation, diarrhea, dyspepsia, hematemesis, hematochezia, loose stools, melena, nausea, vomiting or other Genitourinary Genitourinary: Denies burning urination, difficulty urinating, dysuria, hematuria, nocturia, urinary frequency, urinary hesitancy, urinary incontinence, urinary urgency or other Musculoskeletal Musculoskeletal: Denies arthralgias, back pain, joint pain, joint stiffness, joint swelling, myalgias, neck pain or other Neurologic Neurologic: Reports abnormal speech and focal weakness Psychiatric Psychiatric: Denies anxiety, depression, homicidal ideation, suicidal ideation or other Endocrine Endocrinology: Denies change in body appearance, cold intolerance, excessive sweating, heat intolerance, polydipsia, polyuria or other Hematologic/Lymphatic Hematologic/Lymphatic: Denies anemia, easy bleeding, easy bruising, lymphadenopathy or other Vital Signs Vital Signs Vital Signs: 03/25/21 14:46 03/25/21 16:45 03/25/21 16:52 Temperature 95.5 F L Temperature Source Temporal Pulse Rate 90 82 Respiratory Rate 16 15 Blood Pressure 141/84 H 132/92 H Blood Pressure Mean 103 105 Pulse Ox 99 98 100 Oxygen Delivery Method Room Air Room Air Room Air 03/25/21 16:54 Temperature Temperature Source Pulse Rate Respiratory Rate Blood Pressure 132/92 H Blood Pressure Mean 105 Pulse Ox Oxygen Delivery Method Weight Weight: 179 lb 0.246 oz Body Mass Index (BMI) 30.7 Physical Exam Const alert and oriented x3 General Appearance: cooperative HEENT moist oral mucous membranes Eyes PERRL, EOMs intact bilaterally and conjunctivae normal Neck no lymphadenopathy, supple and no JVD Resp normal respiratory effort, no retractions, no use of accessory muscles and clear to auscultation bilaterally Cardio regular rate, regular rhythm, no rub and no JVD GI normal to inspection, nondistended, normoactive bowel sounds, soft to palpation and non-tender Extremity normal to inspection, full ROM and no clubbing, cyanosis or edema Peripheral Pulses: Yes pulses 2+ throughout Skin no rashes or lesions noted, no wounds, skin turgor normal and no jaundice Neuro no focal motor deficits Neuro Narrative: Patient does demonstrate mild slurred speech with left-sided facial droop. Patient does not demonstrate any focal weakness or numbness/tingling. Psych affect normal Results Lab / Micro Data Result Diagrams: 03/25/21 16:05 03/25/21 16:05 Labs: Laboratory Results - last 24 hr 03/25/21 16:05: WBC 11.2 H, RBC 4.76, Hgb 14.7, Hct 43.4, MCV 91.2, MCH 30.9, MCHC 33.9, RDW Std Deviation 39.3, RDW Coeff of Paolo 11.7, Plt Count 208, MPV 9.8, Immature Gran % (Auto) 0.300, Neut % (Auto) 64.0, Lymph % (Auto) 30.0, Power % (Auto) 4.5, Eos % (Auto) 0.8, Baso % (Auto) 0.4, Absolute Neuts (auto) 7.2, Absolute Lymphs (auto) 3.37, Nucleated RBC % 0 03/25/21 16:05: PT 13.0, INR 1.0, APTT 26.3 03/25/21 16:05: Sodium 141, Potassium 4.0, Chloride 109 H, Carbon Dioxide 29.0, Anion Gap 3 L, BUN 16, Creatinine 0.68, Estim Creat Clear Calc 86.42, Est GFR (MDRD) Af Amer 119, Est GFR (MDRD) Non-Af 98, BUN/Creatinine Ratio 23.6 H, Glucose 96, Calcium 9.9 Rhythm Strip Rhythm Strip: Sinus Rhythm Rate: 91 Ectopy: None Radiology Impression Chest X-Ray 03/25/21 14:45 IMPRESSION: Normal x-ray examination of the chest. Electronically Signed: Calvin Arias MD at 15:18 EST , Service support , Brain CT 03/25/21 14:51 IMPRESSION: Normal unenhanced CT scan of the brain. Electronically Signed: Calvin Arias MD at 15:18 EST , Service support , Assessment & Plan Assessment/Plan (1) Stroke-like symptoms: PLAN: Patient is a 50-year-old female who presents to the ED at [facility] on 03/25/2021 with a chief complaint of left-sided facial droop and slurred speech. Patient will be admitted for evaluation and management of possible CVA. 1) strokelike symptoms Patient presents with a 1 day history of left-sided facial droop and slurred speech. Patient does not complain of nor did she demonstrate any other focal neurological deficits, patient is appropriately alert and oriented. NIH stroke scale obtained in the ED is 1. Brain CT does not demonstrate any evidence of acute ischemia or infarction. Plan; admit to PCU, obtain brain MRI obtain head/neck MRA, NIH stroke scale ordered, CBC and CMP in a.m., lipid profile ordered, magnesium ordered, phosphorus ordered, TSH ordered, echocardiogram in a.m., hemoglobin A1c in a.m., continue current aspirin and statin regimen, allow for permissive hypertension, as needed labetalol and hydralazine ordered for hypertensive emergency, PT/OT eval ordered, speech therapy ordered, TPA not administered due to being outside of window, will obtain SOC consult pending imaging. 2) DM2 Manages through Metformin and therapeutic lifestyle change, patient reports that her last hemoglobin A1c was 5.2. Plan; hold home Metformin, obtain hemoglobin A1c as above, Accu-Cheks with sliding scale insulin ordered. 3) seizure history Patient does not feel like current episode is like prior seizures she has experienced, continue topiramate. 4) depression Continue Effexor. 5) tobacco abuse Patient reports a 35 pack year history of smoking 1 pack/day. Cessation advised, patient denied wanting supplemental nicotine patch. DVT prophylaxis - Lovenox Advance care planning: Patient does not have a does needed healthcare power of deputy prosecuting attorney or living well. In the event that patient cannot make decisions for herself, she would like her Zelalem Vallecillo to make decisions for her. CODE STATUS: Full code Patient seen by Jackson Diallo PA-C, under the supervision of Dr. Jean. Documented by User: Dr. Tasneem Jean DO 03/25/21 21:04 HPI - General General Date of Admission: 03/25/21 Date of Service: 03/25/21 Chief Complaint: Left upper extremity tingling numbness/left facial droop/slurred speech HPI Narrative This patient was seen in conjunction with ALLY Thomas. The following is representation my independent history and physical lamination. Please see below for addendum above. Ms. Vallecillo is a 50-year-old female who presented to the emergency department at [facility] on 03/25/2021 with a chief complaint of left upper extremity tingling/numbness, left facial droop, and slurred speech. She reports that her symptoms started this morning at around 8-9 o'clock while she was driving to work. It was persistent and she was trying to text her boss but having difficulty with her dexterity to do so. She works with somebody who is an [employer] and they felt that her symptoms of facial droop and speech were fairly significant and recommended she come to the emergency department however she delayed care till noon at which time her friend picked her up and brought her to the emergency department. She reports that her facial symptoms lasted for approximately 10 to 15 minutes and her speech symptoms were somewhat ongoing but have resolved at the time of my evaluation. She also complained of some left- sided hand tingling and numbness with no weakness that is resolved at this time as well. She is a smoker and has a history of hyperlipidemia as well as DM-2 and she takes progesterone control. Her initial NIH was 1 and remained 1 throughout her stay for mild left facial droop. Her vital signs the emergency department were unremarkable. Her CBC shows a mildly elevated white count with leukocytosis of 11.2 but is otherwise unremarkable. Her coags are normal. Her BMP is normal. Her initial troponin is less than 3. Her EKG shows normal sinus rhythm without any ST-T wave changes consistent with ischemia. Her chest x-ray was unremarkable for acute findings. A CT of her brain was performed and showed normal unenhanced CT of the brain. Her symptoms and her past medical history we felt it prudent to admit her for stroke rule out. She does have a family history of stroke in her father. 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] 60 mg PO DAILY 08/28/20 [History Last Taken 03/25/21] topiramate 150 mg PO BID 08/28/20 [History Last Taken 03/25/21] atorvastatin 40 mg QHS 02/24/21 [History Last Taken 03/24/21] ergocalciferol (vitamin D2) 50,000 unit PO TU 02/24/21 [History Last Taken 03/19/21] progesterone micronized 200 mg PO DAILY 02/24/21 [History Last Taken 03/24/21] venlafaxine 150 mg PO DAILY 02/24/21 [History Last Taken 03/25/21] Dim 200 mg PO/SL DAILY 03/25/21 [History Last Taken 03/25/21] aspirin 81 mg PO DAILY 03/25/21 [History Last Taken 03/25/21] magnesium oxide 400 mg PO DAILY 03/25/21 [History Last Taken 03/25/21] potassium chloride [Klor-Con M20] 20 meq PO QHS 03/25/21 [History Last Taken 03/24/21] Allergy/AdvReac Type Severity Reaction Status Date / Time No Known Allergies Allergy Verified 02/24/21 15:14 Family History Father CVA (cerebral vascular accident) Cancer Skin Mother Endometriosis Surgical History H/O: hysterectomy Hx of appendectomy Hx of cholecystectomy Hx of laparoscopy Hx of tonsillectomy Social History Smoking Status: Current every day smoker tobacco type: cigarettes Smoking packs per day: 1 Smoking cigarettes per day: 20.0 Years smoked: 35 Smoking pack-years: 35.00 alcohol intake: current alcohol intake frequency: holidays/special occasions only substance use type: does not use ROS Constitutional Constitutional: Denies anorexia, change in weight, chills, fatigue, fever(s), malaise, night sweats, weakness or other Eyes Eyes: Denies blurry vision, change in eye color, change in vision, discharge from eye(s), double vision, erythema, eye pain, loss of vision or other ENT HEENT: Denies abnormal hearing, dysphagia, ear pain, epistaxis, headache(s), hearing loss, nasal congestion, nasal discharge, post nasal drip, sinus pressure, sore throat or other Cardiovascular Cardiovascular: Denies chest pain, claudication, dyspnea on exertion, edema, lightheadedness, orthopnea, palpitations, paroxysmal nocturnal dyspnea, rapid heart rate, syncope or other Respiratory/Chest Respiratory/Chest: Denies cough, dyspnea, excessive phlegm production, hemoptysis, productive cough, shortness of breath at rest, shortness of breath with exertion, wheezing or other Gastrointestinal Gastrointestinal: Denies abdominal pain, coffee ground emesis, constipation, diarrhea, dyspepsia, hematemesis, hematochezia, loose stools, melena, nausea, vomiting or other Genitourinary Genitourinary: Denies burning urination, difficulty urinating, dysuria, hematuria, nocturia, urinary frequency, urinary hesitancy, urinary incontinence, urinary urgency or other Musculoskeletal Musculoskeletal: Denies arthralgias, back pain, joint pain, joint stiffness, joint swelling, myalgias, neck pain or other Neurologic Neurologic: Reports abnormal speech, focal weakness, numbness and paresthesias Psychiatric Psychiatric: Denies anxiety, depression, homicidal ideation, suicidal ideation or other Endocrine Endocrinology: Denies change in body appearance, cold intolerance, excessive sweating, heat intolerance, polydipsia, polyuria or other Hematologic/Lymphatic Hematologic/Lymphatic: Denies anemia, easy bleeding, easy bruising, lymphadenopathy or other Allergic/Immunologic Allergic/Immunologic: Denies rhinitis, hives, eczemia, asthma or other Physical Exam Const alert, oriented x3, no apparent distress, average body habitus, healthy appearing and well nourished Constitutional Narrative: Overweight middle-age white female who appears older than stated age, appears comfortable nontoxic General Appearance: cooperative HEENT normocephalic, head/scalp atraumatic, hearing grossly normal bilaterally and moist oral mucous membranes HEENT Narrative: Dentures in place, Mallampati is 2-3, no thrush Eyes PERRL, EOMs intact bilaterally and conjunctivae normal Eyes Narrative: No scleral icterus Neck no lymphadenopathy, supple, no JVD and no carotid bruits Neck Narrative: Trachea midline, no thyroid enlargement Resp normal respiratory effort, no retractions, no use of accessory muscles and clear to auscultation bilaterally Resp Narrative: Diffusely diminished but clear Auscultation: Negative for crackles, rales, rhonchi or wheezes Cardio regular rate, regular rhythm, S1 normal heart sound, S2 normal heart sound, no murmurs, no rub, no gallops, no clicks and no JVD GI normal to inspection, nondistended, normoactive bowel sounds, soft to palpation, non-tender and non-distended; Negative for hepatosplenomegaly Extremity no clubbing, cyanosis or edema Peripheral Pulses: Yes pulses 2+ throughout Skin no rashes or lesions noted, no wounds, skin turgor normal, no jaundice, no petechiae and no mottling Neuro oriented x3, moves all extremities and no focal motor deficits Neuro Narrative: Very slight left-sided facial droop, reflexes are 2+ upper and lower extremities Sensorium / Orientation: awake and alert Speech: speech normal Motor Exam: strength 5/5 throughout Psych affect normal Psych Narrative: Pleasant Results Lab / Micro Data Attestation: I reviewed the patient's lab results. Result Diagrams: 03/25/21 16:05 03/25/21 16:05 Assessment & Plan Assessment/Plan (1) Dysarthria: (2) Facial droop: (3) Paresthesias: PLAN: Assessment: Dysarthria/left facial droop/left upper extremity paresthesias DM-2 Hyperlipidemia Hypothyroidism Diabetic neuropathy Seizure disorder Depression Tobacco abuse Overweight Plan: -Check MRI of brain -Check MRA of head neck -Check echocardiogram -Check lipids -Check hemoglobin A1c -Acute stroke order set with NIH -Recommend smoking cessation -May need SOC involvement depending on results of above -Continue home aspirin and atorvastatin -PT/OT consultation -Hold home oral diabetic agents and use SSI and Accu-Cheks before meals and at bedtime -Possible discharge home tomorrow depending on work-up -May need event monitor at discharge Charges/Coding Visit Charges Inpatient E&M: 57356 Init Hosp L3
[2021-03-25 17:39] LABS: Troponin-I HS < 3 pg/mL (3.0-54.0)
--- NOTE | 2021-03-25 19:29 | PCS.PANDOC ---
PANDEMIC DOCUMENTATION INITIATED: Date: 11/26/2020 Time: 190
[2021-03-25] MEDS: 0.9% Normal Saline 1,000 ML 50 ML IV (20:17)
[2021-03-25] MEDS: Topiramate 100 MG Tablet PO (21:12)
[2021-03-25] MEDS: Atorvastatin Calcium 40 MG Tablet PO (21:12)
[2021-03-25 22:51] LABS: Bedside Glucose 86 mg/dL (70-110)
[2021-03-25 22:54] LABS: Internal QC Validated? YES +Cl - CLEAR BKGD; Pregnancy, Urine Negative Negative
[2021-03-26] VITALS (11 sets, daily range): BP systolic 104–118; BP diastolic 65–74; PULSE 67–82; RESP 14–18; TEMP 36.6–36.9; O2SAT 93–98; BMI 29.3
--- NOTE | 2021-03-26 05:55 | ECHOD_ITS ---
Reason For Study: TIA/STROKE Procedure This was a 2D Doppler, Color Flow transthoracic echocardiogram. The exam was of adequate technical quality. Exam performed portable in patient room. Left Ventricle Normal LV size. Left ventricular systolic function is normal. The estimated ejection fraction is 65 %. No evidence for diastolic dysfunction. No regional wall motion abnormalities noted. Right Ventricle Normal RV size. Normal systolic function. Atria Normal left atrium. Normal right atrium. No doppler evidence for ASD. Bubble contrast study negative for right to left interatrial shunt. Mitral Valve There is no mitral annular calcification. Normal mitral valve. Trivial mitral valve insufficiency. Tricuspid Valve Normal tricuspid valve. Trivial tricuspid valve insufficiency. Right ventricular systolic pressure estimated to be 16 mmHg. Aortic Valve Trisinus/trileaflet aortic valve. Normal aortic valve. Trivial aortic valve insufficiency. Pulmonic Valve The pulmonic valve is not well visualized. Great Vessels Normal sized aortic root. Pericardium/Pleural No pericardial effusion. Medication Performed a rapid injection of agitated mix of 9 cc saline and 1cc air to assess for atrial septal defect. MMode/2D Measurements & Calculations LVIDd: 4.2 cm IVSd: 0.80 cm Ao root diam: 3.3 cm LVIDs: 3.0 cm LVPWd: 0.85 cm RVDd: 3.5 cm FS: 28.8 % LAV(MOD-bp): 42.0 ml LVAd ap4: 24.6 cm2 LVAd ap2: 23.8 cm2 LAV(MOD-bp) Indexed: 22.9 ml/m2 LVLd ap4: 6.9 cm LVLd ap2: 7.7 cm LAV(MOD-sp2): 35.5 ml EDV(MOD-sp4): 71.7 ml EDV(MOD-sp2): 60.4 ml LAV(MOD-sp4): 41.9 ml EDV(sp4-el): 74.3 ml EDV(sp2-el): 62.6 ml LVAs ap4: 13.4 cm2 LVAs ap2: 10.8 cm2 LVLs ap4: 6.0 cm LVLs ap2: 5.5 cm ESV(MOD-sp4): 27.2 ml ESV(MOD-sp2): 17.1 ml ESV(sp4-el): 25.4 ml ESV(sp2-el): 17.9 ml EF(MOD-sp4): 62.1 % EF(MOD-sp2): 71.7 % EF(sp4-el): 65.8 % SV(MOD-sp4): 44.5 ml SV(MOD-sp2): 43.3 ml SV(sp4-el): 48.9 ml LA A4 area: 16.6 cm2 LA dimension(2D): 3.3 cm RA A4 area: 14.5 cm2 Doppler Measurements & Calculations MV E max james: 79.3 cm/sec Lat Peak E' James: 11.6 cm/sec Med Peak E' James: 8.5 cm/sec MV A max james: 68.8 cm/sec E/E' lat: 6.9 E/E' med: 9.3 MV E/A: 1.2 Ao V2 max: 134.4 cm/sec LV V1 max: 93.5 cm/sec TR max james: 177.4 cm/sec Ao max P.2 mmHg LV V1 max P.5 mmHg TR max P.6 mmHg ECHO/Echo Complete Interpretation Summary Left ventricular systolic function is normal. The estimated ejection fraction is 65 %. Trivial mitral valve insufficiency. Trivial tricuspid valve insufficiency. Trivial aortic valve insufficiency. Right ventricular systolic pressure estimated to be 16 mmHg. No evidence for diastolic dysfunction. Bubble contrast study negative for right to left interatrial shunt. Ordering Physician: Tasneem Jean Referring Physician: LISSETTE MENG Performed By: Alexandria Richardson, DREADCS, RVT
--- NOTE | 2021-03-26 05:55 | MRI_ITS ---
STUDY: MRI BRAIN WITHOUT CONTRAST REASON FOR EXAM: Female, 50 years old. tia TECHNIQUE: Standardized multiplanar fat and water weighted pulse sequences were obtained. COMPARISON: CT 03/25/2021, MRI 04/08/2019 FINDINGS: Normal size of the ventricles and extra-axial spaces for the patient''s age. Normal white matter tracts of the supratentorial brain. There is no evidence for recent intracranial ischemia or other cause of cytotoxic edema on diffusion weighted imaging (DWI). Decrease in hemosiderin staining within the inferior aspect left hemisphere of the cerebellum consistent with further resolution of hemorrhage. Normal bilateral basal ganglia. Normal thalami. There is no extra-axial fluid accumulation. Normal flow voids within the major intracranial circulation suggesting patency by spin echo criteria. Normal sella turcica, pituitary gland, infundibular stalk, optic chiasm and hypothalamus. Normal tectal plate and pineal gland. Normal midbrain, verena and medulla. Normal cerebellum. Normal basal cisterns. Normal bilateral temporal bones. Normal bilateral internal auditory canals. No demonstrated orbital abnormality, within the constraints of a routine brain study. Normal visualized paranasal sinuses. Normal calvarium and skull base. Normal visualized soft tissue structures. Normal visualized upper cervical spine. MRI/Brain without Contrast IMPRESSION: Normal unenhanced MRI of the brain. Electronically Signed: Titus Baeza MD at 12:34 EST Tel , Service support ,
--- NOTE | 2021-03-26 05:55 | MRI_ITS ---
STUDY: MRA NECK WITHOUT CONTRAST REASON FOR EXAM: Female, 50 years old. tia, left facial droop, slurred speech, dysarthria TECHNIQUE: Source images were obtained, MIPs were performed. The study was performed unenhanced. COMPARISON: None. FINDINGS: RIGHT CAROTID ARTERIES: Normal right common carotid artery (CCA). Normal right common carotid bulb. Normal origin of the right internal carotid (ICA) artery without a hemodynamically significant stenosis. Normal visualized cervical portion of the right internal carotid artery. Normal origin of the right external carotid artery (ECA). LEFT CAROTID ARTERIES: Normal left common carotid artery (CCA). Normal left common carotid bulb. Normal origin of the left internal carotid (ICA) artery without a hemodynamically significant stenosis. Normal visualized cervical portion of the left internal carotid artery. Normal origin of the left external carotid artery (ECA). VERTEBRAL ARTERIES: Normal antegrade flow within the bilateral vertebral artery without a hemodynamically significant stenosis. MRI/MRA Neck without Contrast IMPRESSION: Normal bilateral cervical carotid and vertebral arteries. Electronically Signed: Titus Baeza MD at 12:35 EST Tel , Service support ,
[2021-03-26 06:10] LABS: Absolute Lymphocyte Count 4.81 X10^3/uL (0.83-4.51); Absolute Neutrophil Count 4.7 X10^3/uL (2.0-7.7); Basophil# 0.07 X10^3/uL; Basophil% 0.7 % (0-1); Eosinophil# 0.16 X10^3/uL; Eosinophils% 1.6 % (0-5); Hematocrit 38.2 % (37-47); Lymphocyte # 4.81 X10^3/ul (0.83-4.51); Lymphocyte % 46.9 % (19-41); Mean Corpuscular Hgb 31.2 pg (27.0-32.0); Mean Corpuscular Volume 91.6 fL (81-99); Mean Platelet Vol. 10.2 fl (6.2-12.0); Monocyte# 0.52 X10^3/uL; Monocyte% 5.1 % (0-10); NRBC Flagged by Analyzer 0 % (0-5); Neutrophil # 4.68 X10^3/uL (2.7-7.7); Neutrophil % 45.5 % (47-70); Platelet Count 184 K/mm3 (150-450); RBC Distribution Width CV 11.8 % (11.6-14.6); RBC Distribution Width SD 39.8 fl (35.1-43.9); Red Blood Count 4.17 M/mm3 (4.2-5.4); White Blood Count 10.3 K/mm3 (4.4-11.0)
[2021-03-26 06:40] LABS: Bedside Glucose 103 mg/dL (70-110)
[2021-03-26 06:59] LABS: AST(SGOT) 15 U/L (15-37); Alanine Aminotransfer ALT/SGPT 23 U/L (13-56); Alkaline Phosphatase 82 U/L (45-117); Anion Gap 5 (5-15); BUN 15 mg/dL (7-18); BUN/Creat Ratio 25.3 RATIO (10-20); Calcium,Total 9.3 mg/dL (8.5-10.1); Chloride 112 mmol/L (98-107); Cholesterol 124 mg/dL (200); Creatinine, Serum 0.59 mg/dL (0.55-1.02); EST Glomerular Filtration Rate 114 mL/min (>60); Est Glom Filt Rate - Afr Amer 138 mL/min (>60); Globulin 3.1 g/dL (2.2-4.2); Glucose 97 mg/dL (74-106); High Density Lipoprotein 33 mg/dL; Magnesium 2.2 mg/dL (1.6-2.6); Potassium 3.7 mmol/L (3.5-5.1); Protein, Total 6.1 g/dL (6.4-8.2); Sodium Level 143 mmol/L (136-145); Thyroid Stim Hormone (TSH) 0.99 uIU/mL (0.358-3.74); Triglycerides 167 mg/dL; Very Low Density Lipoprotein 33 mg/dL (5-40)
[2021-03-26 07:22] LABS: Hemoglobin A1c 5.6 % (3.8-5.6)
--- NOTE | 2021-03-26 08:30 | MRI_ITS ---
STUDY: MRA OF THE HEAD WITHOUT CONTRAST REASON FOR EXAM: Female, 50 years old. tia TECHNIQUE: 3-D [id number]-ib-[id number] (TOF) imaging was performed with MIPs. The study was performed unenhanced. COMPARISON: None. FINDINGS: Normal bilateral petrous carotid arteries. Normal right cavernous carotid artery with a normal supraclinoid bifurcation. Normal left cavernous carotid artery with a normal supraclinoid bifurcation. Normal right A1 segments of the anterior cerebral artery. Normal left A1 segments of the anterior cerebral artery. Normal intact anterior communicating artery (ACOM). Normal bilateral A2 segments of the anterior cerebral arteries. Normal right M1 and M2 segments of the middle cerebral arteries, with a normal M1 bifurcation. Normal left M1 and M2 segments of the middle cerebral arteries, with a normal M1 bifurcation. Normal right posterior communicating artery (PCOM). There is a persistent origin of the left posterior cerebral artery with absence of the P1 segment of the left posterior cerebral artery. Normal bilateral vertebral arteries. Normal basilar artery with a normal basilar bifurcation. The visualized bilateral superior cerebellar (SCA) arteries are normal. Normal bilateral P1, P2 and visualized P3 segments of the posterior cerebral arteries. There is no demonstrated aneurysm of the [place] of [place]. There is no major vessel occlusion or hemodynamically significant stenosis. There is no demonstrated abnormality of the visualized brain. MRI/MRA Head ONLY without Contrast IMPRESSION: Normal MRA of the head Electronically Signed: Titus Baeza MD at 12:34 EST Tel , Service support ,
[2021-03-26] MEDS: Aspirin 81 MG TAB.CHEW PO (08:34)
[2021-03-26] MEDS: LORazepam 2 MG/ML Syringe 1 MG IV (09:31)
[2021-03-26] MEDS: 0.9% Saline Lock 10 ML Syringe IV (09:37)
--- NOTE | 2021-03-26 11:02 | TELEMED_ITS ---
[facility] has confirmed receipt of a request for visit. This document confirms receipt of the order initiating the consult. To find the results of the consultation, please view the patient's reports for the scanned Telemed Consult.
--- NOTE | 2021-03-26 11:03 | PCM.DC ---
Discharge Instructions Diet Discharge Diet: No restrictions Activity Discharge Activity: Return to Normal Activity Weight Bearing Status: Weight bearing as tolerated Dressing / Incision Call your doctor if you observe: Fever of 101 or Higher, Numbness or Tingling, Shortness of breath, Dizziness, Chest pain, Increased palpitations (irregular heartbeat) and Calf discomfort Follow Up Care Please Follow Up With: Primary care provider When: Within the next two weeks. Test Results: Test results from this visit will be discussed in further detail at your follow-up appointment, if applicable. Discharge Plan Admission Admit Date/Time: 03/25/21 17:11 Primary Reason for Your Visit: Stroke like symptoms. Attending Provider: Eleazar Sandoval Primary Care Provider: Allison Escobedo Instructions Additional Instructions / Restrictions: * It is normal for blood sugars to spike while taking Prednisone. * Monitor blood sugars closely over the next two weeks, while taking prednisone. * If your blood sugars stay consistently elevated over 300, contact your primary care physician. Discharge Orders/Prescriptions Prescriptions: New prednisone 20 mg tablet 60 mg PO DAILY Qty: 21 RF: 0 valacyclovir 1 gram tablet 1,000 mg PO TID Qty: 21 RF: 0 Continued gabapentin 600 mg Tablet 600 mg PO BID RF: 0 topiramate 100 mg Tablet 150 mg PO BID RF: 0 metformin 500 mg Tablet,Er Basil.Retention 24 Hr 500 mg PO DAILY RF: 0 thyroid (pork) [SOLDERER DIPPER Thyroid] 60 mg Tablet 60 mg PO DAILY RF: 0 omega 5-mtm-hys-fish oil [Fish Oil] 1,200 (144-216) mg Capsule 1,200 cap PO DAILY RF: 0 Zyrtec 10 mg Capsule 10 mg PO DAILY RF: 0 atorvastatin 40 mg tablet 40 mg QHS RF: 0 venlafaxine 150 mg capsule,extended release 24hr 150 mg PO DAILY RF: 0 progesterone micronized 200 mg capsule 200 mg PO DAILY RF: 0 ergocalciferol (vitamin D2) 1,250 mcg (50,000 unit) capsule 50,000 unit PO TU RF: 0 potassium chloride [Klor-Con M20] 20 mEq tablet,ER particles/crystals 20 meq PO QHS RF: 0 aspirin 81 mg tablet,chewable 81 mg PO DAILY RF: 0 magnesium oxide 400 mg magnesium Tablet 400 mg PO DAILY RF: 0 Dim 200 mg PO/SL DAILY RF: 0 Referrals / Follow Up: FraAllison perez DO [Primary Care Provider] - Within 2 Weeks Dalton Haq MD [NON-STAFF] - Within 1 Week (Establish visit after Prednisone and Valacyclovir are complete to monitor resolution of [place] Palsy. ) Disposition Disposition (needs filled in before D/C Order can be placed): Home, Self Care
[2021-03-26] MEDS: Venlafaxine XR 150 MG Capsule PO (12:16)
[2021-03-26] MEDS: Topiramate 100 MG Tablet PO (12:16)
[2021-03-26] MEDS: Loratadine 10 MG Tablet PO (12:16)
[2021-03-26] MEDS: Thyroid 60 MG Tablet PO (12:16)
[2021-03-26] MEDS: Enoxaparin 40 MG/0.4 ML Syringe SC (12:16)
[2021-03-26 12:21] LABS: Bedside Glucose 117 mg/dL (70-110)
[2021-03-26] MEDS: PROGESTERONE, MICRONIZED 100 MG CAPSULE 200 MG PO (13:51)
--- NOTE | 2021-03-26 15:51 | CASEMGMT ---
Pt declined need for therapy eval, stating back to baseline. SStjuan GALINDO CM
[2021-03-26] MEDS: Gabapentin 600 MG Tablet PO (16:11)
[2021-03-26 16:16] LABS: Bedside Glucose 96 mg/dL (70-110)
--- NOTE | 2021-03-26 16:52 | DS.PCM_ITS ---
Documented by User: Jackson CANALES 03/26/21 17:00 Providers Date of Admission: 03/25/21 Primary Care Physician: Dr. Lissette Meng DO Reason For Visit: TIA Diagnosis Discharge Diagnosis (1) Dysarthria: Status: Acute Code(s): R47.1 - Dysarthria and anarthria (2) Facial droop: Status: Acute Code(s): R29.810 - Facial weakness (3) Paresthesias: Status: Acute Code(s): R20.2 - Paresthesia of skin Medications at Discharge Home Medications Zyrtec 10 mg PO DAILY 08/28/20 gabapentin 600 mg PO BID 08/28/20 metformin 500 mg PO DAILY 08/28/20 omega 3-iyv-zmx-fish oil [Fish Oil] 1,200 cap PO DAILY 08/28/20 thyroid (pork) [[employer]ATE [employer]ICER Thyroid] 60 mg PO DAILY 08/28/20 topiramate 150 mg PO BID 08/28/20 atorvastatin 40 mg QHS 02/24/21 ergocalciferol (vitamin D2) 50,000 unit PO TU 02/24/21 progesterone micronized 200 mg PO DAILY 02/24/21 venlafaxine 150 mg PO DAILY 02/24/21 Dim 200 mg PO/SL DAILY 03/25/21 aspirin 81 mg PO DAILY 03/25/21 magnesium oxide 400 mg PO DAILY 03/25/21 potassium chloride [Klor-Con M20] 20 meq PO QHS 03/25/21 prednisone 60 mg PO DAILY #21 tab 03/26/21 valacyclovir 1,000 mg PO TID #21 tab 03/26/21 Hospital Course Procedures 2-D Echocardiogram and Transesophageal Echo Summary of Care Provided Minutes Spent on Discharge: 35 Hospital Course: 1) [place] Palsy. Patient presented to the ED on 03/25/2021 with a 1 day history of left-sided facial droop, slurred speech and paresthesias localized to the left hand. Patient was admitted for stroke work-up. Brain MRI and head/neck MRI did not reveal any evidence of acute ischemia, infarction or severe stenosis. Echocardiogram obtained and demonstrated normal LV systolic function, an estimated EF of 65%, no evidence of diastolic dysfunction and a negative bubble study. 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 Recommendations are as follows; initiate prednisone, initiate valacyclovir, continue aspirin, continue statin, smoking cessation, follow-up with PCP within the next 2 weeks, follow-up with neurology within the next 2 weeks. Lipid levels are well controlled on current dose of statin. Diabetes is well controlled, hemoglobin A1c is 5.6. Patient was advised to closely monitor her blood sugar levels as I expect that they will rise concomitantly while taking prednisone. Patient was advised to reach out to her PCP for any persistent issues with controlling her blood sugar. PT/OT eval did not identify any skilled therapy needs, and patient is safe to return home. 2) DM2 Diabetes is well controlled, hemoglobin A1c was 5.6. Continue home diabetic regimen and monitor blood sugars as above. 3) seizure history Continue topiramate. 4) depression Continue Effexor. 5) tobacco abuse Patient reports a 35 pack year history of smoking 1 pack/day. Cessation advised. Patient seen by Jackson Diallo PA-C, under the supervision of Dr. Sandoval. Physical Exam Narrative Patient is a 50-year-old female comfortably resting in bed, alert and orient x3. Patient still has left-sided facial weakness, which has remained the same from admission. Reports resolution of her paresthesias in her left hand. Denies development of any new symptoms overnight. Does not appear in acute distress. Const alert, oriented x3 and no apparent distress HEENT normocephalic, head/scalp atraumatic, hearing grossly normal bilaterally and moist oral mucous membranes Eyes PERRL, EOMs intact bilaterally and conjunctivae normal Neck no lymphadenopathy, supple and no JVD Resp normal respiratory effort, no retractions, no use of accessory muscles and clear to auscultation bilaterally Cardio regular rate, regular rhythm, no murmurs and no JVD GI normal to inspection, nondistended, normoactive bowel sounds, soft to palpation and non-tender Extremity normal to inspection, full ROM and no clubbing, cyanosis or edema Skin no rashes or lesions noted, no wounds and skin turgor normal Neuro CN's II-XII intact bilaterally Psych affect normal Weight / BMI Weight Weight: 171 lb 1.259 oz Body Mass Index (BMI) 29.3 ABG / Lab / Microbiology Data Result Diagrams: 03/26/21 05:04 03/26/21 05:04 Laboratory: Laboratory Results - last 24 hr 03/25/21 16:05: PT 13.0, INR 1.0, APTT 26.3 03/25/21 16:05: Troponin I High Sens < 3 L 03/25/21 21:11: POC Glucose 86 03/25/21 22:37: Urine Test Negative 03/26/21 05:04: Hemoglobin A1c 5.6 03/26/21 05:04: WBC 10.3, RBC 4.17 L, Hgb 13.0, Hct 38.2, MCV 91.6, MCH 31.2, MCHC 34.0, RDW Std Deviation 39.8, RDW Coeff of Paolo 11.8, Plt Count 184, MPV 10.2, Immature Gran % (Auto) 0.200, Neut % (Auto) 45.5 L, Lymph % (Auto) 46.9 H, Mclennan % (Auto) 5.1, Eos % (Auto) 1.6, Baso % (Auto) 0.7, Absolute Neuts (auto) 4.7, Absolute Lymphs (auto) 4.81 H, Nucleated RBC % 0 03/26/21 05:04: Sodium 143, Potassium 3.7, Chloride 112 H, Carbon Dioxide 26.0, Anion Gap 5, BUN 15, Creatinine 0.59, Estim Creat Clear Calc 99.60, Est GFR (MDRD) Af Amer 138, Est GFR (MDRD) Non-Af 114, BUN/Creatinine Ratio 25.3 H, Glucose 97, Calcium 9.3, Phosphorus 4.0, Magnesium 2.2, Total Bilirubin 0.50, AST 15, ALT 23, Alkaline Phosphatase 82, Total Protein 6.1 L, Albumin 3.0 L, Globulin 3.1, Albumin/Globulin Ratio 1.0, Triglycerides 167, Cholesterol 124, LDL Cholesterol 58, VLDL Cholesterol 33, HDL Cholesterol 33 L, TSH 0.99 03/26/21 06:16: POC Glucose 103 03/26/21 12:14: POC Glucose 117 H 03/26/21 16:12: POC Glucose 96 Radiography Diagnostic Testing: Radiology Impression Echocardiogram 03/26/21 05:55 Interpretation Summary Left ventricular systolic function is normal. The estimated ejection fraction is 65 %. Trivial mitral valve insufficiency. Trivial tricuspid valve insufficiency. Trivial aortic valve insufficiency. Right ventricular systolic pressure estimated to be 16 mmHg. No evidence for diastolic dysfunction. Bubble contrast study negative for right to left interatrial shunt. Ordering Physician: Tasneem Jean Referring Physician: LISSETTE MENG Performed By: Alexandria Richardson RDCS, RVT D/C Instructions Discharge Diet: No restrictions Weight Bearing Status: Weight bearing as tolerated Call your doctor if you observe: Fever of 101 or Higher, Numbness or Tingling, Shortness of breath, Dizziness, Chest pain, Increased palpitations (irregular heartbeat) and Calf discomfort Please Follow Up With: Primary care provider When: Within the next two weeks. Meaningful Use Info Meaningful Use Diagnoses (Choose all that apply): None applicable Discharge Plan Admission Admit Date/Time: 03/25/21 17:11 Primary Reason for Your Visit: Stroke like symptoms. Attending Provider: Eleazar Sandoval Primary Care Provider: Lissette Meng Instructions Additional Instructions / Restrictions: * It is normal for blood sugars to spike while taking Prednisone. * Monitor blood sugars closely over the next two weeks, while taking prednisone. * If your blood sugars stay consistently elevated over 300, contact your primary care physician. Discharge Orders/Prescriptions Prescriptions: New prednisone 20 mg tablet 60 mg PO DAILY Qty: 21 RF: 0 valacyclovir 1 gram tablet 1,000 mg PO TID Qty: 21 RF: 0 Continued gabapentin 600 mg Tablet 600 mg PO BID RF: 0 topiramate 100 mg Tablet 150 mg PO BID RF: 0 metformin 500 mg Tablet,Er Basil.Retention 24 Hr 500 mg PO DAILY RF: 0 thyroid (pork) [[employer]POR[employer] OFFICER Thyroid] 60 mg Tablet 60 mg PO DAILY RF: 0 omega 4-fll-rsh-fish oil [Fish Oil] 1,200 (144-216) mg Capsule 1,200 cap PO DAILY RF: 0 Zyrtec 10 mg Capsule 10 mg PO DAILY RF: 0 atorvastatin 40 mg tablet 40 mg QHS RF: 0 venlafaxine 150 mg capsule,extended release 24hr 150 mg PO DAILY RF: 0 progesterone micronized 200 mg capsule 200 mg PO DAILY RF: 0 ergocalciferol (vitamin D2) 1,250 mcg (50,000 unit) capsule 50,000 unit PO TU RF: 0 potassium chloride [Klor-Con M20] 20 mEq tablet,ER particles/crystals 20 meq PO QHS RF: 0 aspirin 81 mg tablet,chewable 81 mg PO DAILY RF: 0 magnesium oxide 400 mg magnesium Tablet 400 mg PO DAILY RF: 0 Dim 200 mg PO/SL DAILY RF: 0 Referrals / Follow Up: Lissette Meng DO [Primary Care Provider] - Within 2 Weeks Dalton Haq MD [NON-STAFF] - Within 1 Week (Establish visit after Prednisone and Valacyclovir are complete to monitor resolution of [place] Palsy. ) Disposition Disposition (needs filled in before D/C Order can be placed): Home, Self Care Documented by User: Dr. Eleazar Sandoval MD 03/27/21 11:07 Providers Date of Admission: 03/25/21 Reason For Visit: TIA Medications at Discharge Home Medications Zyrtec 10 mg PO DAILY 08/28/20 gabapentin 600 mg PO BID 08/28/20 metformin 500 mg PO DAILY 08/28/20 omega 4-nrp-dnm-fish oil [Fish Oil] 1,200 cap PO DAILY 08/28/20 thyroid (pork) [CORPORATE [employer] OFFICER Thyroid] 60 mg PO DAILY 08/28/20 topiramate 150 mg PO BID 08/28/20 atorvastatin 40 mg QHS 02/24/21 ergocalciferol (vitamin D2) 50,000 unit PO TU 02/24/21 progesterone micronized 200 mg PO DAILY 02/24/21 venlafaxine 150 mg PO DAILY 02/24/21 Dim 200 mg PO/SL DAILY 03/25/21 aspirin 81 mg PO DAILY 03/25/21 magnesium oxide 400 mg PO DAILY 03/25/21 potassium chloride [Klor-Con M20] 20 meq PO QHS 03/25/21 prednisone 60 mg PO DAILY #21 tab 03/26/21 valacyclovir 1,000 mg PO TID #21 tab 03/26/21 Hospital Course Summary of Care Provided Hospital Course: This patient was seen in conjunction with Jackson Diallo PA-C. I have independently interviewed and examined the patient and reviewed pertinent historical, laboratory, and other data. Please refer to Jackson Diallo PA-C's note for details of this patient's presentation, findings, and recommendations. I have reviewed Jackson Diallo PA-C's note and concur with documented findings. In brief, patient is a 50-year-old lady who presented with left facial numbness. Was admitted to monitored bed acute CVA ruled out. 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 Attending Provider: Eleazar Sandoval Primary Care Provider: Lissette Meng Instructions Additional Instructions / Restrictions: * It is normal for blood sugars to spike while taking Prednisone. * Monitor blood sugars closely over the next two weeks, while taking prednisone. * If your blood sugars stay consistently elevated over 300, contact your primary care physician. Discharge Orders/Prescriptions Prescriptions: New prednisone 20 mg tablet 60 mg PO DAILY Qty: 21 RF: 0 valacyclovir 1 gram tablet 1,000 mg PO TID Qty: 21 RF: 0 Continued gabapentin 600 mg Tablet 600 mg PO BID RF: 0 topiramate 100 mg Tablet 150 mg PO BID RF: 0 metformin 500 mg Tablet,Er Basil.Retention 24 Hr 500 mg PO DAILY RF: 0 thyroid (pork) [[employer]POR[employer] OFFICER Thyroid] 60 mg Tablet 60 mg PO DAILY RF: 0 omega 5-rmb-alz-fish oil [Fish Oil] 1,200 (144-216) mg Capsule 1,200 cap PO DAILY RF: 0 Zyrtec 10 mg Capsule 10 mg PO DAILY RF: 0 atorvastatin 40 mg tablet 40 mg QHS RF: 0 venlafaxine 150 mg capsule,extended release 24hr 150 mg PO DAILY RF: 0 progesterone micronized 200 mg capsule 200 mg PO DAILY RF: 0 ergocalciferol (vitamin D2) 1,250 mcg (50,000 unit) capsule 50,000 unit PO TU RF: 0 potassium chloride [Klor-Con M20] 20 mEq tablet,ER particles/crystals 20 meq PO QHS RF: 0 aspirin 81 mg tablet,chewable 81 mg PO DAILY RF: 0 magnesium oxide 400 mg magnesium Tablet 400 mg PO DAILY RF: 0 Dim 200 mg PO/SL DAILY RF: 0 Referrals / Follow Up: Lissette Meng DO [Primary Care Provider] - Within 2 Weeks Dalton Haq MD [NON-STAFF] - Within 1 Week (Establish visit after Prednisone and Valacyclovir are complete to monitor resolution of [place] Palsy. ) Disposition Disposition (needs filled in before D/C Order can be placed): Home, Self Care Charges/Coding Visit Charges OBSV E&M: 19085 Observation care discharge
== END 2021-03-26 11:08 | disposition home or self-care (01) ==
LOC: ED 17:30 → PCU 17:39
PROVIDERS: Admitting Provider Internal Medicine; Emergency Provider Emergency Medicine; PCP Family Medicine; Visit Provider Internal Medicine
DX: G51.0 Bell's palsy (principal); E03.9 Hypothyroidism, unspecified; M79.7 Fibromyalgia; I10 Essential (primary) hypertension; K58.9 Irritable bowel syndrome, unspecified; F17.210 Nicotine dependence, cigarettes, uncomplicated; E78.5 Hyperlipidemia, unspecified; R29.701 NIHSS score 1; R47.81 Slurred speech; E11.40 Type 2 diabetes mellitus with diabetic neuropathy, unspecified; F41.9 Anxiety disorder, unspecified; F32.A Depression, unspecified; G40.909 Epilepsy, unspecified, not intractable, without status epilepticus; Z79.82 Long term (current) use of aspirin; Z79.899 Other long term (current) drug therapy; Z79.84 Long term (current) use of oral hypoglycemic drugs; Z79.890 Hormone replacement therapy
CPT/HCPCS: 36415; 70450; 70544; 70547; 70551; 71045; 80048; 80053; 80061; 81025; 82962; 83036; 83735; 84100; 84443; 84484; 85025; 85610; 85730; 93005; 93306; 96372; 96374; 99218; 99285; J7030; Q9957; A4216; G0378

== ENCOUNTER 2021-08-24 10:20 | Emergency (ER) | payer OTHER, SELFPAY ==
[2021-08-24 10:21] VITALS: BP 138/76; PULSE 87; RESP 14; TEMP 36.6; O2SAT 100; BMI 30.7
--- NOTE | 2021-08-24 10:30 | EDS_ITS ---
HPI History of Present Illness Chief Complaint: Abscess Detail of Chief Complaint: Abscess to left groin Informant: patient Narrative Narrative: Patient presents to the emergency department complaint of an abscess to the left groin that she first noticed yesterday. Patient states that she was seen at urgent care in [place] 3 days ago and diagnosed with a staph infection in her nose and was started on mupirocin cream. Patient also had some erythema to the area of bilateral groin and was told that if she developed an abscess to come back and be seen. She denies any fevers. She denies chills or sweats. Patient is a diabetic. She is had prior abscess on her calf that required I&D. Prior similar symptoms: Yes PFSH PFSH Medical History Anxiety Depression Diabetes Endometriosis determined by laparoscopy Fibromyalgia History of hypertension Hypertension Hypothyroidism IBS (irritable bowel syndrome) Migraines Seizures Seizures Smoker Home Medications Zyrtec 10 mg PO DAILY 08/28/20 [History Last Taken 03/25/21] gabapentin 600 mg PO BID 08/28/20 [History Last Taken 03/25/21] metformin 500 mg PO DAILY 08/28/20 [History Last Taken 03/25/21] omega 4-cmk-jme-fish oil [Fish Oil] 1,200 cap PO DAILY 08/28/20 [History Last Taken 03/25/21] thyroid (pork) [SLABBING MACHINE OPERATOR Thyroid] 60 mg PO DAILY 08/28/20 [History Last Taken 03/25/21] topiramate 150 mg PO BID 08/28/20 [History Last Taken 03/25/21] atorvastatin 40 mg QHS 02/24/21 [History Last Taken 03/24/21] ergocalciferol (vitamin D2) 50,000 unit PO TU 02/24/21 [History Last Taken 03/19/21] progesterone micronized 200 mg PO DAILY 02/24/21 [History Last Taken 03/24/21] venlafaxine 150 mg PO DAILY 02/24/21 [History Last Taken 03/25/21] Dim 200 mg PO/SL DAILY 03/25/21 [History Last Taken 03/25/21] aspirin 81 mg PO DAILY 03/25/21 [History Last Taken 03/25/21] magnesium oxide 400 mg PO DAILY 03/25/21 [History Last Taken 03/25/21] potassium chloride [Klor-Con M20] 20 meq PO QHS 03/25/21 [History Last Taken 03/24/21] prednisone 60 mg PO DAILY #21 tab 03/26/21 [Rx Last Taken Unknown] valacyclovir 1,000 mg PO TID #21 tab 03/26/21 [Rx Last Taken Unknown] clindamycin HCl [Cleocin HCl] 300 mg PO Q6H #28 capsule 08/24/21 [Rx Last Taken Unknown] Allergy/AdvReac Type Severity Reaction Status Date / Time No Known Allergies Allergy Verified 08/24/21 10:21 Family History Father CVA (cerebral vascular accident) Cancer Skin Mother Endometriosis Surgical History H/O: hysterectomy Hx of appendectomy Hx of cholecystectomy Hx of laparoscopy Hx of tonsillectomy Social History Smoking Status: Current every day smoker tobacco type: cigarettes alcohol intake: current alcohol intake frequency: holidays/special occasions only substance use type: does not use ROS ROS ED Constitutional Constitutional ED: Reports systems reviewed and no addt'l complaints, except as documented; Denies body ache(s), change in weight or chills Eyes Eyes: Denies acute decrease in peripheral vision, change in vision, double vision or loss of vision ENT ENT ED: Reports none; Denies ear pain, lip swelling, loss taste/smell, neck pain, otalgia or sore throat Cardiovascular Cardiovascular: Reports none; Denies abdominal pain, chest pain with activity, leg edema, lightheadedness, palpitations, rapid heart rate or syncope Respiratory/Chest Respiratory/Chest: Reports none; Denies change in mental status, dry cough, dyspnea, hemoptysis, shortness of breath at rest or shortness of breath with exertion Gastrointestinal Gastrointestinal: Reports none; Denies abdominal pain, change in stool character, diarrhea, hematemesis, hematochezia, melena, rectal bleeding or vomiting Genitourinary Genitourinary ED: Reports none; Denies abdominal discomfort, anuria, dysuria, genital pain or polyuria Musculoskeletal Musculoskeletal: Reports none; Denies arthralgias, back pain, difficulty walking, extremity pain, muscle weakness or myalgias Integumentary Reports none and other Details: Abscess left groin ; Denies abscess or rash Neurologic Neurologic: Reports none; Denies abnormal gait, confusion, focal weakness, frequent falls, headache(s), loss of vision, numbness, paresthesias, radicular pain, vertigo or weakness Psychiatric Psychiatric: Reports systems reviewed and no addt'l complaints, except as documented and none; Denies behavioral changes, confusion, difficulty concentrating, hallucinations, suicidal ideation, tactile hallucinations or visual hallucinations Endocrine Endocrinology: Denies none, cold intolerance, excessive sweating, fatigue or heat intolerance Hematologic/Lymphatic Hematologic/Lymphatic: Reports none; Denies anemia, easy bleeding or easy bruising Allergic/Immunologic Allergic/Immunologic ED: Denies as per HPI, none, lip swelling, mouth swelling, throat swelling, tongue swelling or hives EXAM Physical Exam Const Vital Signs: 08/24/21 10:21 Temperature 97.8 F Temperature Source Temporal Pulse Rate 87 Respiratory Rate 14 Blood Pressure 138/76 H Blood Pressure Mean 96 Pulse Ox 100 Oxygen Delivery Method Room Air Positive well nourished and well developed General Appearance ED: well developed and NAD HEENT Reports TM's clear and moist mucous membranes normocephalic and atraumatic; Negative for trauma or tenderness Tympanic Membrane ED: Yes TM's clear Eyes PERRL and EOMs intact bilaterally General Eye ED: Negative for pale conjunctiva or scleral icterus Neck no lymphadenopathy, supple and no JVD General: Negative for tenderness Chest Wall inspection of chest normal and palpation of chest normal Chest: Negative for tenderness Resp normal respiratory effort and clear to auscultation bilaterally Effort and Inspection: Negative for respiratory distress or pain with movement Auscultation: Negative for rhonchi, wheezes or diminished lung sounds Cardio regular rate, regular rhythm, S1 normal heart sound, S2 normal heart sound and no murmurs Peripheral Pulses: pulses 2+ throughout GI normal to inspection, nondistended, normoactive bowel sounds, soft to palpation, non-tender, non-distended and no masses Back/Spine no CVA tenderness and no thoracic nor lumbar tenderness Extremity normal to inspection General Extremety ED: Negative for edema General Extremity: Negative for edema Neuro oriented x3, CN's II-XII intact bilaterally, no sensory deficits noted and gait normal Sensorium / Orientation: awake, alert, oriented to person, oriented to place and oriented to time Motor Exam: strength 5/5 throughout and strength abnormal Psych mental status grossly normal Skin no rashes or lesions noted and no wounds Skin Narrative: Patient with a 2.5 cm abscess to the left inner upper thigh. There is some fluctuance. Some mild erythema noted. MDM MDM MDM Narrative Medical decision making narrative: Patient was offered incision and drainage of the abscess to which she agreed. Area of the skin was cleansed with Shur-Clens. I gave patient option of local anesthetic with lidocaine versus just a small stab incision with 11 blade. Patient agreed to just a small stab incision with 11 blade. A 1 cm incision was made into the fluctuant portion of the abscess and large amount of purulent free-flowing debris was expressed. Wound was irrigated with saline. Clean dressing applied. Patient was given a dose of clindamycin p.o. She will be started on clindamycin for 7 days. Patient advised to return if increasing pain, redness, swelling, purulent drainage, or condition should worsen anyway. Discharge Plan Triage Chief Complaint: Abscess ED Provider: Lian Fritz Dx/Rx/DC Orders Clinical Impression: Abscess Instructions: ED Abscess Incision And Drainage Prescriptions: New clindamycin HCl [Cleocin HCl] 300 MG capsule 300 mg PO Q6H Qty: 28 RF: 0 No Action gabapentin 600 mg Tablet 600 mg PO BID RF: 0 topiramate 100 mg Tablet 150 mg PO BID RF: 0 metformin 500 mg Tablet,Er Basil.Retention 24 Hr 500 mg PO DAILY RF: 0 thyroid (pork) [SLABBING MACHINE OPERATOR Thyroid] 60 mg Tablet 60 mg PO DAILY RF: 0 omega 8-kgw-dyf-fish oil [Fish Oil] 1,200 (144-216) mg Capsule 1,200 cap PO DAILY RF: 0 Zyrtec 10 mg Capsule 10 mg PO DAILY RF: 0 atorvastatin 40 mg tablet 40 mg QHS RF: 0 venlafaxine 150 mg capsule,extended release 24hr 150 mg PO DAILY RF: 0 progesterone micronized 200 mg capsule 200 mg PO DAILY RF: 0 ergocalciferol (vitamin D2) 1,250 mcg (50,000 unit) capsule 50,000 unit PO TU RF: 0 potassium chloride [Klor-Con M20] 20 mEq tablet,ER particles/crystals 20 meq PO QHS RF: 0 aspirin 81 mg tablet,chewable 81 mg PO DAILY RF: 0 magnesium oxide 400 mg magnesium Tablet 400 mg PO DAILY RF: 0 Dim 200 mg PO/SL DAILY RF: 0 prednisone 20 mg tablet 60 mg PO DAILY Qty: 21 RF: 0 valacyclovir 1 gram tablet 1,000 mg PO TID Qty: 21 RF: 0 Primary Care Provider: Allison Escobedo Referrals: Allison Escobedo DO [Primary Care Provider] - Disposition Disposition: Home, Self Care
[2021-08-24 10:50] VITALS: RESP 16
[2021-08-24] MEDS: Clindamycin HCl 150 MG Capsule 300 MG PO (10:50)
== END 2021-08-24 10:54 | disposition home or self-care (01) ==
LOC: ED 10:51
PROVIDERS: Emergency Provider Emergency Medicine; PCP Family Medicine; Visit Provider Emergency Medicine
DX: L02.214 Cutaneous abscess of groin (principal); E11.9 Type 2 diabetes mellitus without complications; I10 Essential (primary) hypertension; F17.210 Nicotine dependence, cigarettes, uncomplicated; E03.9 Hypothyroidism, unspecified; F41.9 Anxiety disorder, unspecified; F32.A Depression, unspecified
CPT/HCPCS: 10060; 99283

== ENCOUNTER 2022-03-18 15:54 | Emergency (ER) | payer OTHER, SELFPAY ==
[2022-03-18 15:55] VITALS: BP 134/90; PULSE 103; RESP 15; TEMP 36.4; O2SAT 99; BMI 31.0
[2022-03-18 16:20] VITALS: BP 130/89; PULSE 85; RESP 16; O2SAT 98
--- NOTE | 2022-03-18 16:50 | EKG12_ITS ---
Test Reason : SHORT OF BREATH Blood Pressure : / mmHG Vent. Rate : 092 BPM Atrial Rate : 092 BPM P-R Int : 140 ms QRS Dur : 134 ms QT Int : 408 ms P-R-T Axes : 049 030 -03 degrees QTc Int : 504 ms Normal sinus rhythm Right bundle branch block Abnormal ECG Confirmed by NENO LUCAS, JOY ([id number]), restaurant expeditor VANDANA ALONSO ([id number]) on 03/20/2022 9:38:41 AM Referred By: Confirmed By:JOY LAZCANO MD
--- NOTE | 2022-03-18 17:14 | EDS_ITS ---
HPI History of Present Illness Chief Complaint: Hyperglycemia Informant: patient Onset/Context/Timing Onset: Today Context: Sudden Onset Timing: Continuous Quality: Aching Location: Generalized Worsened by: Activity Relieved by: Resting Narrative Narrative: Patient presents with nausea, palpitations, shortness of breath that began when she woke up this morning. Patient states it came on rather suddenly. Patient states she has general myalgias and arthralgias. Patient states her pain feels like it is aching. Patient states it is worse with activity and better with rest. Patient states she checked her blood sugar at home and it was 259. Patient states this is elevated for her normal blood sugars. Patient denies any fevers or chills. Patient denies any chest pain but feels like her heart is racing at times. Patient admits to some shortness of breath but denies any cough. Patient admits to nausea but denies any vomiting. PFSH PFSH Medical History Anxiety Chronic fatigue Depression Diabetes Endometriosis determined by laparoscopy Fibromyalgia History of hypertension Hypertension Hypothyroidism IBS (irritable bowel syndrome) Migraines Seizures Seizures Smoker Home Medications cetirizine 10 mg capsule (Zyrtec) 10 mg PO DAILY allergies 08/28/20 [History Last Taken 03/25/21] gabapentin 600 mg tablet 600 mg PO BID nerve pain 08/28/20 [History Last Taken 03/25/21] metformin 500 mg 24 hr tablet,extended release 500 mg PO DAILY diabetes 08/28/20 [History Last Taken 03/25/21] omega 0-met-jpk-fish oil 1,200 mg (144 mg-216 mg) capsule (Fish Oil) 1,200 cap PO DAILY supplement 08/28/20 [History Last Taken 03/25/21] thyroid (pork) 60 mg tablet (MANAGEMENT INFORMATION SYSTEMS DIRECTOR Thyroid) 60 mg PO DAILY thyroid 08/28/20 [History Last Taken 03/25/21] topiramate 100 mg tablet 150 mg PO BID SEIZURES 08/28/20 [History Last Taken 03/25/21] atorvastatin 40 mg tablet 40 mg QHS cholesterol 02/24/21 [History Last Taken 03/24/21] ergocalciferol (vitamin D2) 1,250 mcg (50,000 unit) capsule 50,000 unit PO TU vitamin 02/24/21 [History Last Taken 03/19/21] progesterone micronized 200 mg capsule 200 mg PO DAILY hormones 02/24/21 [History Last Taken 03/24/21] venlafaxine 150 mg capsule,extended release 24 hr 150 mg PO DAILY mental health 02/24/21 [History Last Taken 03/25/21] Dim 200 mg PO/SL DAILY SUPPLEMENT 03/25/21 [History Last Taken 03/25/21] aspirin 81 mg chewable tablet 81 mg PO DAILY heart health 03/25/21 [History Last Taken 03/25/21] magnesium oxide 400 mg PO DAILY supplement 03/25/21 [History Last Taken 03/25/21] potassium chloride 20 mEq tablet,extended release(part/cryst) (Klor-Con M) 20 meq PO QHS supplement 03/25/21 [History Last Taken 03/24/21] prednisone 20 mg tablet 60 mg PO DAILY #21 tabs 03/26/21 [Rx Last Taken Unknown] valacyclovir 1 gram tablet 1,000 mg PO TID #21 tabs 03/26/21 [Rx Last Taken Unknown] clindamycin HCl 300 mg capsule (Cleocin HCl) 300 mg PO Q6H #28 CAPSULES 08/24/21 [Rx Last Taken Unknown] nitrofurantoin monohydrate/macrocrystals 100 mg capsule 100 mg PO Q12 #10 CAPSULES 03/18/22 [Rx Last Taken Unknown] Allergy/AdvReac Type Severity Reaction Status Date / Time No Known Allergies Allergy Verified 03/18/22 15:55 Family History Father CVA (cerebral vascular accident) Cancer Skin Mother Endometriosis Surgical History H/O: hysterectomy Hx of appendectomy Hx of cholecystectomy Hx of laparoscopy Hx of tonsillectomy Social History Smoking Status: Current every day smoker tobacco type: cigarettes alcohol intake: current alcohol intake frequency: holidays/special occasions only substance use type: does not use ROS ROS ED Constitutional Constitutional ED: Denies chills or fever(s) Eyes Eyes: Denies blurry vision or change in vision ENT ENT ED: Denies rhinorrhea or sore throat Cardiovascular Cardiovascular: Reports palpitations; Denies chest pain Respiratory/Chest Respiratory/Chest: Reports dyspnea; Denies cough Gastrointestinal Gastrointestinal: Reports nausea; Denies vomiting Genitourinary Genitourinary ED: Denies dysuria or hematuria Musculoskeletal Musculoskeletal: Reports arthralgias, back pain and myalgias Integumentary Denies abscess or rash Neurologic Neurologic: Denies headache(s) or weakness Allergic/Immunologic Allergic/Immunologic ED: Denies mouth swelling or urticaria EXAM Physical Exam Const Vital Signs: 03/18/22 15:55 03/18/22 16:20 03/18/22 16:22 Temperature 97.5 F L Temperature Source Temporal Pulse Rate 103 H 85 Respiratory Rate 15 16 Respiratory Pattern Normal Blood Pressure 134/90 H 130/89 H Blood Pressure Mean 104 102 Pulse Ox 99 98 Oxygen Delivery Method Room Air Room Air 03/18/22 19:03 Temperature Temperature Source Pulse Rate 92 Respiratory Rate 19 H Respiratory Pattern Blood Pressure 132/76 H Blood Pressure Mean 94 Pulse Ox 99 Oxygen Delivery Method Room Air Positive well nourished and well developed General Appearance ED: well developed and NAD HEENT Reports moist mucous membranes Neck supple and no JVD Resp normal respiratory effort and clear to auscultation bilaterally Cardio regular rate and regular rhythm GI normal to inspection, nondistended, normoactive bowel sounds and non-tender Palpation: soft Extremity normal to inspection General Extremety ED: Negative for edema or tenderness General Extremity: Negative for edema Neuro oriented x3, CN's II-XII intact bilaterally and no sensory deficits noted Sensorium / Orientation: alert Motor Exam: strength 5/5 throughout Psych mental status grossly normal Skin no rashes or lesions noted MDM MDM MDM Narrative Medical decision making narrative: Patient was given IV fluids. EKG was obtained. On my interpretation, it showed a normal sinus rhythm with a rate of 92. NH interval, and QTc intervals were normal. QRS interval was slightly prolonged at 134 ms. There is right bundle branch block pattern noted. [place] was normal. There are no acute ST or T wave changes. CBC shows a mild leukocytosis of 14.8. Comprehensive metabolic profile shows a potassium of 2.7. High-sensitivity troponin was normal. Urinalysis shows leukocyte esterases of 500 with 5-10 white blood cells and 1+ bacteria. There were positive nitrites. PA and lateral chest x-ray was obtained. There are 2 views. On my interpretation, lung baumann are clear. There is normal cardiac silhouette. Bony thorax is normal. There is no acute process noted. Radiologist also interpreted the x-ray and agrees. COVID-19 rapid antigen was obtained and was negative. Influenza A and influenza B rapid antigens were obtained and were negative. Urine culture was ordered. Patient was given a dose of potassium here. Patient was given a dose of nitrofurantoin here. Patient was given prescription for Macrobid. Patient was instructed to follow-up with her primary care physician in 3 to 5 days. Patient understood and was agreeable with the plan. All questions were answered. Lab Data Attestation: I reviewed the patient's lab results. Labs: Laboratory Results - last 24 hr 03/18/22 03/18/22 03/18/22 17:06 17:06 17:15 WBC 14.8 H RBC 4.70 Hgb 14.4 Hct 41.8 MCV 88.9 MCH 30.6 MCHC 34.4 RDW Std Deviation 36.8 RDW Coeff of Paolo 11.5 L Plt Count 238 MPV 10.1 Immature Gran % (Auto) 0.300 Neut % (Auto) 55.7 Lymph % (Auto) 36.3 Love % (Auto) 5.8 Eos % (Auto) 1.4 Baso % (Auto) 0.5 Absolute Neuts (auto) 8.2 H Absolute Lymphs (auto) 5.35 H Nucleated RBC % 0 Differential Comment SCANNED Sodium 137 Potassium 2.7 L* Chloride 100 Carbon Dioxide 35.0 H Anion Gap 2 L BUN 17 Creatinine 0.82 Estim Creat Clear Calc 70.88 Est GFR (MDRD) Af Amer 94 Est GFR (MDRD) Non-Af 78 BUN/Creatinine Ratio 20.6 H Glucose 164 H Calcium 9.4 Total Bilirubin 0.20 AST 18 ALT 33 Alkaline Phosphatase 125 H Troponin I High Sens 7 Total Protein 7.4 Albumin 3.7 Globulin 3.7 Albumin/Globulin Ratio 1.0 Urine Color Yellow Urine Clarity Clear Urine pH 6.5 Ur Specific [place] 1.010 Urine Protein Negative Urine Glucose (UA) Normal Urine Ketones Negative Urine Occult Blood 25 H Urine Nitrite Positive H Urine Bilirubin Negative Urine Urobilinogen Normal Ur Leukocyte Esterase 500 H Urine RBC 0 SEEN Urine WBC 5-10 SEEN Ur Squamous Epith Cells 0-5 SEEN Urine Bacteria 1+ Urine Mucus 0 SEEN Radiography Chest X-Ray - ED: 2 View, Read by ED Physician, Read by Radiologist and No Acute Disease Diagnostic Testing: Clinical Impression(s) from Imaging Studies Chest X-Ray 03/18/22 17:51 IMPRESSION: There are no acute findings. Electronically Signed: Shay Garcia MD at 18:10 EST , EKG Initial EKG: Attestation: I personally reviewed and interpreted this EKG as follows: Interpretation: Sinus Rhythm (92), No Acute Injury Pattern and RBBB Prior EKG tracings: available for review Prior: Unchanged (03/25/2021) Discharge Plan Triage Chief Complaint: Hyperglycemia ED Provider: Frederick King Dx/Rx/DC Orders Clinical Impression: Urinary tract infection, Acute hypokalemia Instructions: ED Cystitis Female Adult Prescriptions: New nitrofurantoin monohyd/m-cryst [nitrofurantoin monohyd/m-cryst] 100 mg capsule 100 mg PO Q12 Qty: 10 0RF No Action gabapentin 600 mg Tablet 600 mg PO BID topiramate 100 mg Tablet 150 mg PO BID metformin 500 mg Tablet,Er Basil.Retention 24 Hr 500 mg PO DAILY thyroid (pork) [MANAGEMENT INFORMATION SYSTEMS DIRECTOR Thyroid] 60 mg Tablet 60 mg PO DAILY omega 5-hju-dqr-fish oil [Fish Oil] 1,200 (144-216) mg Capsule 1,200 cap PO DAILY Zyrtec 10 mg Capsule 10 mg PO DAILY atorvastatin 40 mg tablet 40 mg QHS venlafaxine 150 mg capsule,extended release 24hr 150 mg PO DAILY progesterone micronized 200 mg capsule 200 mg PO DAILY ergocalciferol (vitamin D2) 1,250 mcg (50,000 unit) capsule 50,000 unit PO TU potassium chloride [Klor-Con M20] 20 mEq tablet,ER particles/crystals 20 meq PO QHS aspirin 81 mg tablet,chewable 81 mg PO DAILY magnesium oxide 400 mg magnesium Tablet 400 mg PO DAILY Dim 200 mg PO/SL DAILY prednisone 20 mg tablet 60 mg PO DAILY Qty: 21 0RF valacyclovir 1 gram tablet 1,000 mg PO TID Qty: 21 0RF clindamycin HCl [Cleocin HCl] 300 MG capsule 300 mg PO Q6H Qty: 28 0RF Primary Care Provider: Allison Escobedo Referrals: Allison Escobedo, DO [Primary Care Provider] - 3-5 Days Disposition Disposition: Home, Self Care
[2022-03-18 17:27] LABS: Mucous, Urine 0 SEEN /hpf (<or=2+); Red Blood Cells-Urine 0 SEEN /hpf (0-5)
[2022-03-18 17:28] LABS: Absolute Lymphocyte Count 5.35 X10^3/uL (0.83-4.51); Absolute Neutrophil Count 8.2 X10^3/uL (2.0-7.7); Basophil# 0.08 X10^3/uL; Basophil% 0.5 % (0-1); Eosinophil# 0.21 X10^3/uL; Eosinophils% 1.4 % (0-5); Hematocrit 41.8 % (37-47); Hemoglobin 14.4 g/dL (12.0-15.0); Lymphocyte # 5.35 X10^3/ul (0.83-4.51); Lymphocyte % 36.3 % (19-41); Mean Corp Hgb Conc 34.4 g/dL (32-36); Mean Corpuscular Hgb 30.6 pg (27.0-32.0); Mean Corpuscular Volume 88.9 fL (81-99); Mean Platelet Vol. 10.1 fl (6.2-12.0); Monocyte# 0.86 X10^3/uL; Monocyte% 5.8 % (0-10); NRBC Flagged by Analyzer 0 % (0-5); Neutrophil % 55.7 % (47-70); POSITIVE DIFFERENTIAL YES; Platelet Count 238 K/mm3 (150-450); RBC Distribution Width CV 11.5 % (11.6-14.6); RBC Distribution Width SD 36.8 fl (35.1-43.9); White Blood Count 14.8 K/mm3 (4.4-11.0)
[2022-03-18] MEDS: 0.9% Normal Saline 1,000 ML 1000 ML IV (17:28)
[2022-03-18 17:30] LABS: Differential Indicated SCAN CRITERIA MET
[2022-03-18 17:40] LABS: Color, Urine Yellow (Yellow); Glucose, Dipstick Normal (Normal); Ketone-Dipstick Negative (Negative); Leukocyte Esterase-Dipstick 500 /ul (Negative); Nitrite-Dipstick Positive (Negative); Occult Blood-Urine 25 /ul (Negative); Protein-Dipstick Negative (Negative); Urine Bilirubin Dipstick Negative (Negative); Urine Clarity Clear (Clear); Urine Urobilinogen Normal (Normal); Urine pH 6.5 (5.0 - 8.0)
--- NOTE | 2022-03-18 17:51 | RAD_ITS ---
STUDY: X-RAY CHEST REASON FOR EXAM: Female, 51 years old. CHEST PAIN Dyspnea TECHNIQUE: XR Chest 2 Views COMPARISON: 03.25.21 FINDINGS: There is no demonstrated pleural abnormality. Normal size heart. Normal mediastinum and roxana. Normal visualized pulmonary arteries. Normal visualized aortic arch and descending thoracic aorta. Normal visualized thoracic spine. Normal visualized ribs, clavicles, and shoulders. There is no demonstrated abnormality of the visualized soft tissue structures of the upper abdomen. RAD/Chest PA and Lateral IMPRESSION: There are no acute findings. Electronically Signed: Shay Garcia MD at 18:10 EST ,
[2022-03-18 17:56] LABS: AST(SGOT) 18 U/L (15-37); Alanine Aminotransfer ALT/SGPT 33 U/L (13-56); Albumin, Serum 3.7 g/dL (3.2-5.0); Alkaline Phosphatase 125 U/L (45-117); Anion Gap 2 (5-15); BUN 17 mg/dL (7-18); BUN/Creat Ratio 20.6 RATIO (10-20); Calcium,Total 9.4 mg/dL (8.5-10.1); Chloride 100 mmol/L (98-107); Creatinine, Serum 0.82 mg/dL (0.55-1.02); Differential Comment SCANNED; EST Glomerular Filtration Rate 78 mL/min (>60); Est Glom Filt Rate - Afr Amer 94 mL/min (>60); Estimated Creatinine Clearance 70.88 ml/min; Globulin 3.7 g/dL (2.2-4.2); Glucose 164 mg/dL (74-106); Potassium 2.7 mmol/L (3.5-5.1); Protein, Total 7.4 g/dL (6.4-8.2); Sodium Level 137 mmol/L (136-145); Troponin-I HS 7 pg/mL (3.0-54.0)
[2022-03-18 18:17] LABS: Bacteria 1+ /hpf (None Seen); Squamous Epithelial Cells - UA 0-5 SEEN /hpf (5-10); White Blood Cells 5-10 SEEN /hpf (0-5)
[2022-03-18 19:03] VITALS: BP 132/76; PULSE 92; RESP 19; O2SAT 99
[2022-03-18] MEDS: Potassium Chloride Oral Tablet 20 MEQ 40 MEQ PO (19:17)
[2022-03-18] MEDS: Nitrofurantoin Macrocrystals 100 MG Capsule PO (19:17)
[2022-03-18 19:27] VITALS: BP 121/80; PULSE 81; RESP 18; O2SAT 98
== END 2022-03-18 19:27 | disposition home or self-care (01) ==
PROVIDERS: Emergency Provider Emergency Medicine; PCP Family Medicine; Visit Provider Emergency Medicine
DX: N39.0 Urinary tract infection, site not specified (principal); E11.65 Type 2 diabetes mellitus with hyperglycemia; F17.210 Nicotine dependence, cigarettes, uncomplicated; R06.02 Shortness of breath; I45.10 Unspecified right bundle-branch block; R11.0 Nausea; E87.6 Hypokalemia; I10 Essential (primary) hypertension
CPT/HCPCS: 71046; 80053; 81001; 84484; 85025; 87077; 87086; 87088; 87186; 87428; 93005; 96360; 96361; 99285; J7030; A4216